=== PATIENT | female | born 1960 | race Caucasian/White ===

== ENCOUNTER 2017-11-06 12:05 | Inpatient (IN) | payer OTHER, MEDICAID, SELFPAY ==
[2017-11-06] VITALS (10 sets, daily range): BP systolic 101–126; BP diastolic 60–81; PULSE 89–111; RESP 17–22; TEMP 36.2–37.6; O2SAT 88–99; BMI 22.3; BMI 21.4
--- NOTE | 2017-11-06 12:13 | DI.RAD.S_ITS ---
PROCEDURE: XR CHEST 2V INDICATIONS: 57 year-old female with shortness of breath. TECHNIQUE: 2 views of the chest were acquired. COMPARISON: [facility], , CHEST 1 VIEW, 03/13/2017, 7:19. [facility], , CHEST 2 VIEW, 02/13/2017, 10:55. [facility], , CHEST 2 VIEW, 01/18/2017, 0:12. FINDINGS: Surgical changes and devices: Patient is status post cholecystectomy. Lungs and pleura: No pleural effusions or pneumothorax. Lungs are clear. Mediastinum: Mediastinal contours are normal. Heart size is normal. Bones and chest wall: No suspicious bony abnormalities. Soft tissues appear unremarkable. IMPRESSION: No acute cardiopulmonary disease. Dictated by: King Cornejo M.D. on 11/06/2017 at 13:25 Approved by: King Cornejo M.D. on 11/06/2017 at 13:26
[2017-11-06] MEDS: ALBUTEROL 2.5 MG/3 ML NEB INH (12:24)
[2017-11-06] MEDS: IPRATROPIUM 0.5 MG/3 ML NEB INH (12:24)
--- NOTE | 2017-11-06 12:28 | ED.SOB ---
HPI - SOB/Dyspnea <ARIADNA Rios - Last Filed: 11/06/17 22:29> General Chief Complaint: Shortness of Breath/Dyspnea Stated Complaint: 'FEEL SICK' Time Seen by Provider: 11/06/17 12:31 History of Present Illness 57-year-old female with history of COPD here for complaint of having shortness of breath and productive cough for the last 3 days. She also states she has had a fever. Worsening shortness of breath over the last day. She denies having any chest pain. Positive p.o. intake. She does complain of having a right sided abdominal pain on and off over the past couple of months. With pain present today. She denies any urinary symptoms. No nausea or vomiting. She denies having any diarrhea or constipation. MD Complaint: shortness of breath Severity: moderate Consistency/Duration: constant Relieving factors: nothing Related Data Home Medications Medication Instructions Recorded Confirmed ipratropium-albuterol 3 ml INH Q6HP PRN 11/06/17 11/06/17 Previous Rx's Medication Instructions Recorded albuterol sulfate [Ventolin HFA] 0 puff INH Q4HP PRN #1 ea 07/04/17 beclomethasone dipropionate 80 1 puff INHALATION BID #1 inh 10/15/17 mcg/actuation aerosol inhaler fluticasone 220 mcg/actuation HFA 1 puff INHALATION BID #12 gram 10/15/17 aerosol inhaler nebulizers #1 each 11/08/17 nicotine 1 patch TRANSDERMAL DAILY #21 each 11/08/17 prednisone See Label Instructions .ROUTE 11/08/17 .COMPLEX #18 tab Allergies Allergy/AdvReac Type Severity Reaction Status Date / Time Penicillins [PENICILLINS] Allergy Unknown Verified 11/06/17 12:11 Review of Systems <ARIADNA Rios - Last Filed: 11/06/17 22:29> Constitutional Reports fever(s) Eyes Denies change in vision, Denies eye discharge, Denies irritation and Denies loss of vision Cardiovascular Reports dyspnea Respiratory Reports cough and Reports dyspnea Gastrointestinal Gastrointestinal: Reports abdominal pain Genitourinary Denies hematuria, Denies flank pain, Denies urinary incontinence and Denies urinary urgency Musculoskeletal Denies back pain, Denies muscle weakness, Denies numbness and Denies tingling Integumentary/Breasts Denies pruritus, Denies erythema, Denies rash and Denies wounds Neurologic Denies confusion, Denies loss of vision, Denies numbness and Denies tingling Psychiatric Denies anxiety, Denies confusion, Denies depression, Denies homicidal ideation and Denies suicidal ideation Exam <ARIADNA Rios - Last Filed: 11/06/17 22:29> Initial Vital Signs Initial Vital Signs: Vital Signs Temperature 98.7 F 11/06/17 12:11 Pulse Rate 111 H 11/06/17 12:11 Respiratory Rate 20 11/06/17 12:11 Blood Pressure 123/81 H 11/06/17 12:11 Pulse Oximetry 95 11/06/17 12:11 Resp Effort & Inspection: cough, tachypneic and symmetric chest movement Auscultation: wheezes Cardio Rate: tachycardic Rhythm: regular rhythm Heart Sounds: S1 normal, S2 normal, no click, no gallops, no murmurs and no rubs GI Inspection: normal to inspection Palpation: soft, No hepatomegaly, No hernia, No mass, No pulsatile mass and tender (Right upper and right lower quadrant tenderness) Auscultation: normal bowel sounds General: CVA tenderness Skin General: no rashes or lesions noted, No jaundice and No petechiae Neuro General: alert, oriented x3, gait normal and no focal motor deficits Speech: speech normal Extrem General: full ROM, no clubbing, cyanosis or edema, no pedal edema and no calf tenderness <Stacy Pitts MD - Last Filed: 11/06/17 16:11> Initial Vital Signs Initial Vital Signs: Vital Signs Temperature 98.7 F 11/06/17 12:11 Pulse Rate 111 H 11/06/17 12:11 Respiratory Rate 20 11/06/17 12:11 Blood Pressure 123/81 H 11/06/17 12:11 Pulse Oximetry 95 11/06/17 12:11 <Velma Oconnell DO - Last Filed: 11/13/17 18:47> Initial Vital Signs Initial Vital Signs: Vital Signs Temperature 98.7 F 11/06/17 12:11 Pulse Rate 111 H 11/06/17 12:11 Respiratory Rate 20 11/06/17 12:11 Blood Pressure 123/81 H 11/06/17 12:11 Pulse Oximetry 95 11/06/17 12:11 Course <ARIADNA Rios - Last Filed: 11/06/17 22:29> Orders Ordered: Discontinued Medications Acetaminophen (Tylenol) 650 mg PO Q6HR PRN PRN Reason: As Needed for Fever/Mild Pain Albuterol (Ventolin) 2.5 mg INH NOW ONE Stop: 11/06/17 12:23 Last Admin: 11/06/17 12:24 Dose: 2.5 mg Albuterol/Ipratropium (Duoneb) 3 ml INH NOW ONE Stop: 11/06/17 12:33 Last Admin: 11/06/17 13:13 Dose: 3 ml Albuterol/Ipratropium (Duoneb) 3 ml INH [id number] [facility] Last Admin: 11/07/17 08:53 Dose: 3 ml Admin: 11/07/17 03:05 Dose: 3 ml Admin: 11/06/17 19:44 Dose: 3 ml Albuterol/Ipratropium (Duoneb) 3 ml INH [id number] [facility] Last Admin: 11/08/17 03:21 Dose: 3 ml Admin: 11/07/17 23:14 Dose: Not Given Admin: 11/07/17 18:06 Dose: 3 ml Admin: 11/07/17 14:56 Dose: 3 ml Admin: 11/07/17 11:39 Dose: 3 ml Beclomethasone Dipropionate (Qvar) 1 puff INH RTBID [facility] Last Admin: 11/08/17 03:28 Dose: 1 puff Admin: 11/07/17 18:06 Dose: 1 puff Admin: 11/07/17 08:47 Dose: 1 puff Admin: 11/06/17 19:44 Dose: 1 puff Enoxaparin Sodium (Lovenox) 40 mg SUBCUT DAILY [facility] Last Admin: 11/08/17 08:32 Dose: 40 mg Admin: 11/07/17 08:34 Dose: 40 mg Sodium Chloride (Normal Saline 0.9%) 1,000 mls @ 1,000 mls/hr IV BOLUS ONE Stop: 11/06/17 14:07 Last Infusion: 11/06/17 15:55 Dose: 1,000 mls/hr Admin: 11/06/17 13:42 Dose: 1,000 mls/hr Levofloxacin (Levaquin) 750 mg in 150 mls @ 100 mls/hr IV NOW ONE Stop: 11/06/17 15:41 Last Infusion: 11/06/17 15:55 Dose: 100 mls/hr Admin: 11/06/17 14:16 Dose: 100 mls/hr Levofloxacin (Levaquin) 750 mg in 150 mls @ 100 mls/hr IV Q24H [facility] Last Admin: 11/08/17 08:31 Dose: 100 mls/hr Infusion: 11/07/17 10:24 Dose: 100 mls/hr Admin: 11/07/17 08:54 Dose: 100 mls/hr Ipratropium [place] (Atrovent Neb) 0.5 mg INH NOW ONE Stop: 11/06/17 12:14 Last Admin: 11/06/17 12:24 Dose: 0.5 mg Methylprednisolone (Solu-Medrol 125 Mg Vial) 125 mg IV NOW ONE Stop: 11/06/17 15:31 Last Admin: 11/06/17 15:42 Dose: 125 mg Methylprednisolone (Solu-Medrol 125 Mg Vial) 60 mg IV DAILY [facility] Last Admin: 11/08/17 08:32 Dose: 60 mg Admin: 11/07/17 08:54 Dose: 60 mg Non-Formulary Medication (Solumedrol) 125 mg IV NOW ONE Stop: 11/06/17 15:18 Last Admin: 11/06/17 15:42 Dose: Prednisone (Deltasone) 40 mg PO DAILY [facility] Vital Signs - 8 hr 11/06/17 14:37 11/06/17 15:57 11/06/17 16:12 Temperature 99.1 F 99.6 F Pulse Rate 104 H 110 H 111 H Respiratory Rate 22 20 20 Blood Pressure 107/74 125/63 H Blood Pressure [Right Arm] 126/76 H Pulse Oximetry 96 96 92 11/06/17 20:16 11/06/17 20:40 Temperature 97.2 F L Pulse Rate 100 H 102 H Respiratory Rate 22 20 Blood Pressure 118/72 Blood Pressure [Right Arm] Pulse Oximetry 99 <Stacy Pitts MD - Last Filed: 11/06/17 16:11> Orders Ordered: Discontinued Medications Acetaminophen (Tylenol) 650 mg PO Q6HR PRN PRN Reason: As Needed for Fever/Mild Pain Albuterol (Ventolin) 2.5 mg INH NOW ONE Stop: 11/06/17 12:23 Last Admin: 11/06/17 12:24 Dose: 2.5 mg Albuterol/Ipratropium (Duoneb) 3 ml INH NOW ONE Stop: 11/06/17 12:33 Last Admin: 11/06/17 13:13 Dose: 3 ml Albuterol/Ipratropium (Duoneb) 3 ml INH [id number] [facility] Last Admin: 11/07/17 08:53 Dose: 3 ml Admin: 11/07/17 03:05 Dose: 3 ml Admin: 11/06/17 19:44 Dose: 3 ml Albuterol/Ipratropium (Duoneb) 3 ml INH [id number] [facility] Last Admin: 11/08/17 03:21 Dose: 3 ml Admin: 11/07/17 23:14 Dose: Not Given Admin: 11/07/17 18:06 Dose: 3 ml Admin: 11/07/17 14:56 Dose: 3 ml Admin: 11/07/17 11:39 Dose: 3 ml Beclomethasone Dipropionate (Qvar) 1 puff INH RTBID [facility] Last Admin: 11/08/17 03:28 Dose: 1 puff Admin: 11/07/17 18:06 Dose: 1 puff Admin: 11/07/17 08:47 Dose: 1 puff Admin: 11/06/17 19:44 Dose: 1 puff Enoxaparin Sodium (Lovenox) 40 mg SUBCUT DAILY [facility] Last Admin: 11/08/17 08:32 Dose: 40 mg Admin: 11/07/17 08:34 Dose: 40 mg Sodium Chloride (Normal Saline 0.9%) 1,000 mls @ 1,000 mls/hr IV BOLUS ONE Stop: 11/06/17 14:07 Last Infusion: 11/06/17 15:55 Dose: 1,000 mls/hr Admin: 11/06/17 13:42 Dose: 1,000 mls/hr Levofloxacin (Levaquin) 750 mg in 150 mls @ 100 mls/hr IV NOW ONE Stop: 11/06/17 15:41 Last Infusion: 11/06/17 15:55 Dose: 100 mls/hr Admin: 11/06/17 14:16 Dose: 100 mls/hr Levofloxacin (Levaquin) 750 mg in 150 mls @ 100 mls/hr IV Q24H [facility] Last Admin: 11/08/17 08:31 Dose: 100 mls/hr Infusion: 11/07/17 10:24 Dose: 100 mls/hr Admin: 11/07/17 08:54 Dose: 100 mls/hr Ipratropium [place] (Atrovent Neb) 0.5 mg INH NOW ONE Stop: 11/06/17 12:14 Last Admin: 11/06/17 12:24 Dose: 0.5 mg Methylprednisolone (Solu-Medrol 125 Mg Vial) 125 mg IV NOW ONE Stop: 11/06/17 15:31 Last Admin: 11/06/17 15:42 Dose: 125 mg Methylprednisolone (Solu-Medrol 125 Mg Vial) 60 mg IV DAILY [facility] Last Admin: 11/08/17 08:32 Dose: 60 mg Admin: 11/07/17 08:54 Dose: 60 mg Non-Formulary Medication (Solumedrol) 125 mg IV NOW ONE Stop: 11/06/17 15:18 Last Admin: 11/06/17 15:42 Dose: Prednisone (Deltasone) 40 mg PO DAILY [facility] Vital Signs - 8 hr 11/06/17 14:37 11/06/17 15:57 11/06/17 16:12 Temperature 99.1 F 99.6 F Pulse Rate 104 H 110 H 111 H Respiratory Rate 22 20 20 Blood Pressure 107/74 125/63 H Blood Pressure [Right Arm] 126/76 H Pulse Oximetry 96 96 92 11/06/17 20:16 11/06/17 20:40 Temperature 97.2 F L Pulse Rate 100 H 102 H Respiratory Rate 22 20 Blood Pressure 118/72 Blood Pressure [Right Arm] Pulse Oximetry 99 <Velma Oconnell, - Last Filed: 11/13/17 18:47> Orders Ordered: Discontinued Medications Acetaminophen (Tylenol) 650 mg PO Q6HR PRN PRN Reason: As Needed for Fever/Mild Pain Albuterol (Ventolin) 2.5 mg INH NOW ONE Stop: 11/06/17 12:23 Last Admin: 11/06/17 12:24 Dose: 2.5 mg Albuterol/Ipratropium (Duoneb) 3 ml INH NOW ONE Stop: 11/06/17 12:33 Last Admin: 11/06/17 13:13 Dose: 3 ml Albuterol/Ipratropium (Duoneb) 3 ml INH [id number] [facility] Last Admin: 11/07/17 08:53 Dose: 3 ml Admin: 11/07/17 03:05 Dose: 3 ml Admin: 11/06/17 19:44 Dose: 3 ml Albuterol/Ipratropium (Duoneb) 3 ml INH [id number] [facility] Last Admin: 11/08/17 03:21 Dose: 3 ml Admin: 11/07/17 23:14 Dose: Not Given Admin: 11/07/17 18:06 Dose: 3 ml Admin: 11/07/17 14:56 Dose: 3 ml Admin: 11/07/17 11:39 Dose: 3 ml Beclomethasone Dipropionate (Qvar) 1 puff INH RTBID [facility] Last Admin: 11/08/17 03:28 Dose: 1 puff Admin: 11/07/17 18:06 Dose: 1 puff Admin: 11/07/17 08:47 Dose: 1 puff Admin: 11/06/17 19:44 Dose: 1 puff Enoxaparin Sodium (Lovenox) 40 mg SUBCUT DAILY [facility] Last Admin: 11/08/17 08:32 Dose: 40 mg Admin: 11/07/17 08:34 Dose: 40 mg Sodium Chloride (Normal Saline 0.9%) 1,000 mls @ 1,000 mls/hr IV BOLUS ONE Stop: 11/06/17 14:07 Last Infusion: 11/06/17 15:55 Dose: 1,000 mls/hr Admin: 11/06/17 13:42 Dose: 1,000 mls/hr Levofloxacin (Levaquin) 750 mg in 150 mls @ 100 mls/hr IV NOW ONE Stop: 11/06/17 15:41 Last Infusion: 11/06/17 15:55 Dose: 100 mls/hr Admin: 11/06/17 14:16 Dose: 100 mls/hr Levofloxacin (Levaquin) 750 mg in 150 mls @ 100 mls/hr IV Q24H [facility] Last Admin: 11/08/17 08:31 Dose: 100 mls/hr Infusion: 11/07/17 10:24 Dose: 100 mls/hr Admin: 11/07/17 08:54 Dose: 100 mls/hr Ipratropium [place] (Atrovent Neb) 0.5 mg INH NOW ONE Stop: 11/06/17 12:14 Last Admin: 11/06/17 12:24 Dose: 0.5 mg Methylprednisolone (Solu-Medrol 125 Mg Vial) 125 mg IV NOW ONE Stop: 11/06/17 15:31 Last Admin: 11/06/17 15:42 Dose: 125 mg Methylprednisolone (Solu-Medrol 125 Mg Vial) 60 mg IV DAILY [facility] Last Admin: 11/08/17 08:32 Dose: 60 mg Admin: 11/07/17 08:54 Dose: 60 mg Non-Formulary Medication (Solumedrol) 125 mg IV NOW ONE Stop: 11/06/17 15:18 Last Admin: 11/06/17 15:42 Dose: Prednisone (Deltasone) 40 mg PO DAILY [facility] Vital Signs - 8 hr 11/06/17 14:37 11/06/17 15:57 11/06/17 16:12 Temperature 99.1 F 99.6 F Pulse Rate 104 H 110 H 111 H Respiratory Rate 22 20 20 Blood Pressure 107/74 125/63 H Blood Pressure [Right Arm] 126/76 H Pulse Oximetry 96 96 92 11/06/17 20:16 11/06/17 20:40 Temperature 97.2 F L Pulse Rate 100 H 102 H Respiratory Rate 22 20 Blood Pressure 118/72 Blood Pressure [Right Arm] Pulse Oximetry 99 MDM - SOB/Dyspnea <ARIADNA Rios - Last Filed: 11/06/17 22:29> Lab Data Result diagrams: 11/07/17 05:07 11/07/17 05:07 Lab Results 11/06/17 11/06/17 11/06/17 Range/Units 12:25 12:25 12:25 WBC 20.4 H (4.5-11.0) X10^3/uL RBC 4.78 (4.0-5.2) X10^6/uL Hgb 14.4 (12.0-16.0) g/dL Hct 42.5 (36-46) % MCV 88.7 (80-100) fL MCH 30.2 (26-34) PG MCHC 34.0 (30-36) % RDW 13.5 (11.6-14.8) % Plt Count 225 (150-400) X10^3/uL Neut % (Auto) 77.9 H (50-75) % Lymph % (Auto) 12.4 L (25-40) % [place] % (Auto) 8.7 (3-14) % Eos % (Auto) 0.7 L (2-4) % Baso % (Auto) 0.3 (0-2) % Neut # (Auto) 85455 H (7185-4917) /uL D-Dimer (<230) ng/mL Sodium (137-145) mmol/L Potassium (3.4-5.1) mmol/L Chloride (98-107) mmol/L Carbon Dioxide (22-32) mmol/L BUN (7-17) mg/dL Creatinine (0.52-1.04) mg/dL Estimated GFR (>60) mL/min BUN/Creatinine Ratio (6-22) Glucose (70-100) mg/dL Lactate 1.6 (0.7-2.1) mmol/L Calcium (8.4-10.2) mg/dL Total Bilirubin (0.2-1.3) mg/dL AST (14-36) IU/L ALT (9-52) IU/L Alkaline Phosphatase (38-126) U/L B-Natriuretic Peptide (<100) Total Protein (6.3-8.2) g/dL Albumin (3.5-5.0) g/dL Globulin (1.7-4.1) g/dL Albumin/Globulin Ratio (1.0-2.8) Lipase (23-300) U/L Procalcitonin 0.12 (<0.5) ng/mL Urine RBC (0-5/HPF) Urine WBC (0-5/HPF) Ur Squamous Epith Cells Urine Bacteria (None) Ur Culture Indicated? Micro UA Comment 11/06/17 11/06/17 11/06/17 Range/Units 12:54 12:54 12:54 WBC (4.5-11.0) X10^3/uL RBC (4.0-5.2) X10^6/uL Hgb (12.0-16.0) g/dL Hct (36-46) % MCV (80-100) fL MCH (26-34) PG MCHC (30-36) % RDW (11.6-14.8) % Plt Count (150-400) X10^3/uL Neut % (Auto) (50-75) % Lymph % (Auto) (25-40) % [place] % (Auto) (3-14) % Eos % (Auto) (2-4) % Baso % (Auto) (0-2) % Neut # (Auto) (9961-5161) /uL D-Dimer 497 H (<230) ng/mL Sodium 136 L (137-145) mmol/L Potassium 3.8 (3.4-5.1) mmol/L Chloride 97 L (98-107) mmol/L Carbon Dioxide 27 (22-32) mmol/L BUN 12 (7-17) mg/dL Creatinine 1.00 (0.52-1.04) mg/dL Estimated GFR 57.1 L (>60) mL/min BUN/Creatinine Ratio 12.0 (6-22) Glucose 143 H (70-100) mg/dL Lactate (0.7-2.1) mmol/L Calcium 9.2 (8.4-10.2) mg/dL Total Bilirubin 2.0 H (0.2-1.3) mg/dL AST 35 (14-36) IU/L ALT 36 (9-52) IU/L Alkaline Phosphatase 97 (38-126) U/L B-Natriuretic Peptide < 29.3 (<100) Total Protein 7.9 (6.3-8.2) g/dL Albumin 4.3 (3.5-5.0) g/dL Globulin 3.6 (1.7-4.1) g/dL Albumin/Globulin Ratio 1.2 (1.0-2.8) Lipase 36 (23-300) U/L Procalcitonin (<0.5) ng/mL Urine RBC (0-5/HPF) Urine WBC (0-5/HPF) Ur Squamous Epith Cells Urine Bacteria (None) Ur Culture Indicated? Micro UA Comment 11/06/17 11/07/17 11/07/17 Range/Units 15:06 05:07 05:07 WBC 10.4 (4.5-11.0) X10^3/uL RBC 4.36 (4.0-5.2) X10^6/uL Hgb 13.4 (12.0-16.0) g/dL Hct 38.6 (36-46) % MCV 88.6 (80-100) fL MCH 30.7 (26-34) PG MCHC 34.6 (30-36) % RDW 13.3 (11.6-14.8) % Plt Count 184 (150-400) X10^3/uL Neut % (Auto) 91.7 H (50-75) % Lymph % (Auto) 6.3 L (25-40) % [place] % (Auto) 1.9 L (3-14) % Eos % (Auto) 0.0 L (2-4) % Baso % (Auto) 0.1 (0-2) % Neut # (Auto) 9500 H (9737-9632) /uL D-Dimer (<230) ng/mL Sodium 135 L (137-145) mmol/L Potassium 3.9 (3.4-5.1) mmol/L Chloride 101 (98-107) mmol/L Carbon Dioxide 22 (22-32) mmol/L BUN 16 (7-17) mg/dL Creatinine 0.70 (0.52-1.04) mg/dL Estimated GFR > 60.0 (>60) mL/min BUN/Creatinine Ratio 22.9 H (6-22) Glucose 239 H (70-100) mg/dL Lactate (0.7-2.1) mmol/L Calcium 9.0 (8.4-10.2) mg/dL Total Bilirubin (0.2-1.3) mg/dL AST (14-36) IU/L ALT (9-52) IU/L Alkaline Phosphatase (38-126) U/L B-Natriuretic Peptide (<100) Total Protein (6.3-8.2) g/dL Albumin (3.5-5.0) g/dL Globulin (1.7-4.1) g/dL Albumin/Globulin Ratio (1.0-2.8) Lipase (23-300) U/L Procalcitonin (<0.5) ng/mL Urine RBC None seen (0-5/HPF) Urine WBC 5-10/hpf H (0-5/HPF) Ur Squamous Epith Cells 5-10 /hpf H Urine Bacteria None seen (None) Ur Culture Indicated? Cult not indicated Micro UA Comment Not Reportable Imaging Data CT scan - abdomen: Radiologist's impression: PROCEDURE: CT ABDOMEN PELVIS W CON INDICATIONS: Pain to right lower quadrant TECHNIQUE: After the administration of intravenous contrast, 5 mm thick sections acquired from the diaphragm to the symphysis. 5 mm coronal and sagittal reformats were acquired. For radiation dose reduction, the following was used: automated exposure control, adjustment of mA and/or kV according to patient size. COMPARISON: None. FINDINGS: Image quality: Excellent. ABDOMEN: Lung bases: Mild patchy densities within the right lung base are present, with associated tree in bud nodular densities. Heart size is normal. Solid organs: Liver is normal in size and enhancement. Gallbladder is surgically absent. Biliary system is non dilated. Pancreas enhances normally. Spleen is normal in size and enhancement. No adrenal nodules. Kidneys demonstrate normal size and enhancement, without hydronephrosis. Peritoneum and bowel: Bowel loops demonstrate normal wall thickness and caliber. No free fluid or air. Diverticulosis of the descending and sigmoid colon is present, with no evidence of superimposed diverticulitis. Normal appendix. Nodes and vessels: No retroperitoneal or mesenteric adenopathy by size criteria. Aorta and inferior vena cava are normal in size. Miscellaneous: No ventral hernias. PELVIS: Genitourinary: Bladder wall thickness is normal. Miscellaneous: No inguinal hernias or adenopathy. Bones: No suspicious bony lesions. No vertebral body compression fractures. IMPRESSION: 1. No evidence of acute process. Normal appendix. 2. Right lung base pneumonia. Dictated by: Stone Enrique M.D. on 11/06/2017 at 13:52 Approved by: Stone Enrique M.D. on 11/06/2017 at 13:54 Chest x-ray: Radiologist's impression: PROCEDURE: XR CHEST 2V INDICATIONS: 57 year-old female with shortness of breath. TECHNIQUE: 2 views of the chest were acquired. COMPARISON: [facility], CHEST 1 VIEW, 03/13/2017, 7:19. [facility], CHEST 2 VIEW, 02/13/2017, 10:55. [facility], CHEST 2 VIEW, 01/18/2017, 0:12. FINDINGS: Surgical changes and devices: Patient is status post cholecystectomy. Lungs and pleura: No pleural effusions or pneumothorax. Lungs are clear. Mediastinum: Mediastinal contours are normal. Heart size is normal. Bones and chest wall: No suspicious bony abnormalities. Soft tissues appear unremarkable. IMPRESSION: No acute cardiopulmonary disease. Dictated by: King Cornejo M.D. on 11/06/2017 at 13:25 Approved by: King Cornejo M.D. on 11/06/2017 at 13:26 <Stacy Pitts MD - Last Filed: 11/06/17 16:11> Lab Data Lab Results 11/06/17 11/06/17 11/06/17 Range/Units 12:25 12:25 12:25 WBC 20.4 H (4.5-11.0) X10^3/uL RBC 4.78 (4.0-5.2) X10^6/uL Hgb 14.4 (12.0-16.0) g/dL Hct 42.5 (36-46) % MCV 88.7 (80-100) fL MCH 30.2 (26-34) PG MCHC 34.0 (30-36) % RDW 13.5 (11.6-14.8) % Plt Count 225 (150-400) X10^3/uL Neut % (Auto) 77.9 H (50-75) % Lymph % (Auto) 12.4 L (25-40) % [place] % (Auto) 8.7 (3-14) % Eos % (Auto) 0.7 L (2-4) % Baso % (Auto) 0.3 (0-2) % Neut # (Auto) 48893 H (3532-3203) /uL D-Dimer (<230) ng/mL Sodium (137-145) mmol/L Potassium (3.4-5.1) mmol/L Chloride (98-107) mmol/L Carbon Dioxide (22-32) mmol/L BUN (7-17) mg/dL Creatinine (0.52-1.04) mg/dL Estimated GFR (>60) mL/min BUN/Creatinine Ratio (6-22) Glucose (70-100) mg/dL Lactate 1.6 (0.7-2.1) mmol/L Calcium (8.4-10.2) mg/dL Total Bilirubin (0.2-1.3) mg/dL AST (14-36) IU/L ALT (9-52) IU/L Alkaline Phosphatase (38-126) U/L B-Natriuretic Peptide (<100) Total Protein (6.3-8.2) g/dL Albumin (3.5-5.0) g/dL Globulin (1.7-4.1) g/dL Albumin/Globulin Ratio (1.0-2.8) Lipase (23-300) U/L Procalcitonin 0.12 (<0.5) ng/mL Urine RBC (0-5/HPF) Urine WBC (0-5/HPF) Ur Squamous Epith Cells Urine Bacteria (None) Ur Culture Indicated? Micro UA Comment 11/06/17 11/06/17 11/06/17 Range/Units 12:54 12:54 12:54 WBC (4.5-11.0) X10^3/uL RBC (4.0-5.2) X10^6/uL Hgb (12.0-16.0) g/dL Hct (36-46) % MCV (80-100) fL MCH (26-34) PG MCHC (30-36) % RDW (11.6-14.8) % Plt Count (150-400) X10^3/uL Neut % (Auto) (50-75) % Lymph % (Auto) (25-40) % [place] % (Auto) (3-14) % Eos % (Auto) (2-4) % Baso % (Auto) (0-2) % Neut # (Auto) (1848-0060) /uL D-Dimer 497 H (<230) ng/mL Sodium 136 L (137-145) mmol/L Potassium 3.8 (3.4-5.1) mmol/L Chloride 97 L (98-107) mmol/L Carbon Dioxide 27 (22-32) mmol/L BUN 12 (7-17) mg/dL Creatinine 1.00 (0.52-1.04) mg/dL Estimated GFR 57.1 L (>60) mL/min BUN/Creatinine Ratio 12.0 (6-22) Glucose 143 H (70-100) mg/dL Lactate (0.7-2.1) mmol/L Calcium 9.2 (8.4-10.2) mg/dL Total Bilirubin 2.0 H (0.2-1.3) mg/dL AST 35 (14-36) IU/L ALT 36 (9-52) IU/L Alkaline Phosphatase 97 (38-126) U/L B-Natriuretic Peptide < 29.3 (<100) Total Protein 7.9 (6.3-8.2) g/dL Albumin 4.3 (3.5-5.0) g/dL Globulin 3.6 (1.7-4.1) g/dL Albumin/Globulin Ratio 1.2 (1.0-2.8) Lipase 36 (23-300) U/L Procalcitonin (<0.5) ng/mL Urine RBC (0-5/HPF) Urine WBC (0-5/HPF) Ur Squamous Epith Cells Urine Bacteria (None) Ur Culture Indicated? Micro UA Comment 11/06/17 11/07/17 11/07/17 Range/Units 15:06 05:07 05:07 WBC 10.4 (4.5-11.0) X10^3/uL RBC 4.36 (4.0-5.2) X10^6/uL Hgb 13.4 (12.0-16.0) g/dL Hct 38.6 (36-46) % MCV 88.6 (80-100) fL MCH 30.7 (26-34) PG MCHC 34.6 (30-36) % RDW 13.3 (11.6-14.8) % Plt Count 184 (150-400) X10^3/uL Neut % (Auto) 91.7 H (50-75) % Lymph % (Auto) 6.3 L (25-40) % [place] % (Auto) 1.9 L (3-14) % Eos % (Auto) 0.0 L (2-4) % Baso % (Auto) 0.1 (0-2) % Neut # (Auto) 9500 H (7169-9377) /uL D-Dimer (<230) ng/mL Sodium 135 L (137-145) mmol/L Potassium 3.9 (3.4-5.1) mmol/L Chloride 101 (98-107) mmol/L Carbon Dioxide 22 (22-32) mmol/L BUN 16 (7-17) mg/dL Creatinine 0.70 (0.52-1.04) mg/dL Estimated GFR > 60.0 (>60) mL/min BUN/Creatinine Ratio 22.9 H (6-22) Glucose 239 H (70-100) mg/dL Lactate (0.7-2.1) mmol/L Calcium 9.0 (8.4-10.2) mg/dL Total Bilirubin (0.2-1.3) mg/dL AST (14-36) IU/L ALT (9-52) IU/L Alkaline Phosphatase (38-126) U/L B-Natriuretic Peptide (<100) Total Protein (6.3-8.2) g/dL Albumin (3.5-5.0) g/dL Globulin (1.7-4.1) g/dL Albumin/Globulin Ratio (1.0-2.8) Lipase (23-300) U/L Procalcitonin (<0.5) ng/mL Urine RBC None seen (0-5/HPF) Urine WBC 5-10/hpf H (0-5/HPF) Ur Squamous Epith Cells 5-10 /hpf H Urine Bacteria None seen (None) Ur Culture Indicated? Cult not indicated Micro UA Comment Not Reportable <Velma Oconnell, DO - Last Filed: 11/13/17 18:47> Lab Data Lab Results 11/06/17 11/06/17 11/06/17 Range/Units 12:25 12:25 12:25 WBC 20.4 H (4.5-11.0) X10^3/uL RBC 4.78 (4.0-5.2) X10^6/uL Hgb 14.4 (12.0-16.0) g/dL Hct 42.5 (36-46) % MCV 88.7 (80-100) fL MCH 30.2 (26-34) PG MCHC 34.0 (30-36) % RDW 13.5 (11.6-14.8) % Plt Count 225 (150-400) X10^3/uL Neut % (Auto) 77.9 H (50-75) % Lymph % (Auto) 12.4 L (25-40) % [place] % (Auto) 8.7 (3-14) % Eos % (Auto) 0.7 L (2-4) % Baso % (Auto) 0.3 (0-2) % Neut # (Auto) 66219 H (6529-7325) /uL D-Dimer (<230) ng/mL Sodium (137-145) mmol/L Potassium (3.4-5.1) mmol/L Chloride (98-107) mmol/L Carbon Dioxide (22-32) mmol/L BUN (7-17) mg/dL Creatinine (0.52-1.04) mg/dL Estimated GFR (>60) mL/min BUN/Creatinine Ratio (6-22) Glucose (70-100) mg/dL Lactate 1.6 (0.7-2.1) mmol/L Calcium (8.4-10.2) mg/dL Total Bilirubin (0.2-1.3) mg/dL AST (14-36) IU/L ALT (9-52) IU/L Alkaline Phosphatase (38-126) U/L B-Natriuretic Peptide (<100) Total Protein (6.3-8.2) g/dL Albumin (3.5-5.0) g/dL Globulin (1.7-4.1) g/dL Albumin/Globulin Ratio (1.0-2.8) Lipase (23-300) U/L Procalcitonin 0.12 (<0.5) ng/mL Urine RBC (0-5/HPF) Urine WBC (0-5/HPF) Ur Squamous Epith Cells Urine Bacteria (None) Ur Culture Indicated? Micro UA Comment 11/06/17 11/06/17 11/06/17 Range/Units 12:54 12:54 12:54 WBC (4.5-11.0) X10^3/uL RBC (4.0-5.2) X10^6/uL Hgb (12.0-16.0) g/dL Hct (36-46) % MCV (80-100) fL MCH (26-34) PG MCHC (30-36) % RDW (11.6-14.8) % Plt Count (150-400) X10^3/uL Neut % (Auto) (50-75) % Lymph % (Auto) (25-40) % [place] % (Auto) (3-14) % Eos % (Auto) (2-4) % Baso % (Auto) (0-2) % Neut # (Auto) (1655-7435) /uL D-Dimer 497 H (<230) ng/mL Sodium 136 L (137-145) mmol/L Potassium 3.8 (3.4-5.1) mmol/L Chloride 97 L (98-107) mmol/L Carbon Dioxide 27 (22-32) mmol/L BUN 12 (7-17) mg/dL Creatinine 1.00 (0.52-1.04) mg/dL Estimated GFR 57.1 L (>60) mL/min BUN/Creatinine Ratio 12.0 (6-22) Glucose 143 H (70-100) mg/dL Lactate (0.7-2.1) mmol/L Calcium 9.2 (8.4-10.2) mg/dL Total Bilirubin 2.0 H (0.2-1.3) mg/dL AST 35 (14-36) IU/L ALT 36 (9-52) IU/L Alkaline Phosphatase 97 (38-126) U/L B-Natriuretic Peptide < 29.3 (<100) Total Protein 7.9 (6.3-8.2) g/dL Albumin 4.3 (3.5-5.0) g/dL Globulin 3.6 (1.7-4.1) g/dL Albumin/Globulin Ratio 1.2 (1.0-2.8) Lipase 36 (23-300) U/L Procalcitonin (<0.5) ng/mL Urine RBC (0-5/HPF) Urine WBC (0-5/HPF) Ur Squamous Epith Cells Urine Bacteria (None) Ur Culture Indicated? Micro UA Comment 11/06/17 11/07/17 11/07/17 Range/Units 15:06 05:07 05:07 WBC 10.4 (4.5-11.0) X10^3/uL RBC 4.36 (4.0-5.2) X10^6/uL Hgb 13.4 (12.0-16.0) g/dL Hct 38.6 (36-46) % MCV 88.6 (80-100) fL MCH 30.7 (26-34) PG MCHC 34.6 (30-36) % RDW 13.3 (11.6-14.8) % Plt Count 184 (150-400) X10^3/uL Neut % (Auto) 91.7 H (50-75) % Lymph % (Auto) 6.3 L (25-40) % [place] % (Auto) 1.9 L (3-14) % Eos % (Auto) 0.0 L (2-4) % Baso % (Auto) 0.1 (0-2) % Neut # (Auto) 9500 H (2576-0825) /uL D-Dimer (<230) ng/mL Sodium 135 L (137-145) mmol/L Potassium 3.9 (3.4-5.1) mmol/L Chloride 101 (98-107) mmol/L Carbon Dioxide 22 (22-32) mmol/L BUN 16 (7-17) mg/dL Creatinine 0.70 (0.52-1.04) mg/dL Estimated GFR > 60.0 (>60) mL/min BUN/Creatinine Ratio 22.9 H (6-22) Glucose 239 H (70-100) mg/dL Lactate (0.7-2.1) mmol/L Calcium 9.0 (8.4-10.2) mg/dL Total Bilirubin (0.2-1.3) mg/dL AST (14-36) IU/L ALT (9-52) IU/L Alkaline Phosphatase (38-126) U/L B-Natriuretic Peptide (<100) Total Protein (6.3-8.2) g/dL Albumin (3.5-5.0) g/dL Globulin (1.7-4.1) g/dL Albumin/Globulin Ratio (1.0-2.8) Lipase (23-300) U/L Procalcitonin (<0.5) ng/mL Urine RBC None seen (0-5/HPF) Urine WBC 5-10/hpf H (0-5/HPF) Ur Squamous Epith Cells 5-10 /hpf H Urine Bacteria None seen (None) Ur Culture Indicated? Cult not indicated Micro UA Comment Not Reportable Discharge Plan Departure Patient Disposition: Admitted As Inpatient Clinical Impression: Community acquired pneumonia Discharge Date/Time: 11/06/17 15:58 Interventions: ED Discharge Assessment Last Done: 11/06/17 15:57 Admit Date/Time: 11/06/17 15:46 Admit Provider: Stacy Pitts <Velma Oconnell DO - Last Filed: 11/13/17 18:47> Cosign ED Attending Cosignature Attestation: I was immediately available in the department for consultation. Documentation has been reviewed. I agree with assessment and plan.
[2017-11-06 12:37] LABS: Add Manual Diff / Slide Review NO; Basophils Percent Auto 0.3 % (0-2); Eosinophils Percent Auto 0.7 % (2-4); Hematocrit 42.5 % (36-46); Hemoglobin 14.4 g/dL (12.0-16.0); Lymphocytes Percent Auto 12.4 % (25-40); Mean Corpuscular Hemoglobin 30.2 PG (26-34); Mean Corpuscular Volume 88.7 fL (80-100); Monocytes Percent Auto 8.7 % (3-14); Neutrophils Absolute Auto 15900 /uL (3000-5900); Neutrophils Percent Auto 77.9 % (50-75); Platelet Count 225 X10^3/uL (150-400); Red Blood Cell Count 4.78 X10^6/uL (4.0-5.2); Red Cell Distribution Width 13.5 % (11.6-14.8); White Blood Cell Count 20.4 X10^3/uL (4.5-11.0)
[2017-11-06 12:51] LABS: Lactate (Lactic Acid) 1.6 mmol/L (0.7-2.1)
--- NOTE | 2017-11-06 13:10 | DI.CT.S_ITS ---
PROCEDURE: CT ABDOMEN PELVIS W CON INDICATIONS: Pain to right lower quadrant TECHNIQUE: After the administration of intravenous contrast, 5 mm thick sections acquired from the diaphragm to the symphysis. 5 mm coronal and sagittal reformats were acquired. For radiation dose reduction, the following was used: automated exposure control, adjustment of mA and/or kV according to patient size. COMPARISON: None. FINDINGS: Image quality: Excellent. ABDOMEN: Lung bases: Mild patchy densities within the right lung base are present, with associated tree in bud nodular densities. Heart size is normal. Solid organs: Liver is normal in size and enhancement. Gallbladder is surgically absent. Biliary system is non dilated. Pancreas enhances normally. Spleen is normal in size and enhancement. No adrenal nodules. Kidneys demonstrate normal size and enhancement, without hydronephrosis. Peritoneum and bowel: Bowel loops demonstrate normal wall thickness and caliber. No free fluid or air. Diverticulosis of the descending and sigmoid colon is present, with no evidence of superimposed diverticulitis. Normal appendix. Nodes and vessels: No retroperitoneal or mesenteric adenopathy by size criteria. Aorta and inferior vena cava are normal in size. Miscellaneous: No ventral hernias. PELVIS: Genitourinary: Bladder wall thickness is normal. Miscellaneous: No inguinal hernias or adenopathy. Bones: No suspicious bony lesions. No vertebral body compression fractures. IMPRESSION: 1. No evidence of acute process. Normal appendix. 2. Right lung base pneumonia. Dictated by: Stone Enrique M.D. on 11/06/2017 at 13:52 Approved by: Stone Enrique M.D. on 11/06/2017 at 13:54
[2017-11-06] MEDS: ALBUTEROL/IPRATROPIUM 3 ML AMPUL INH ×2 (13:13→19:44)
[2017-11-06 13:16] LABS: Alanine Aminotransferase 36 IU/L (9-52); Albumin 4.3 g/dL (3.5-5.0); Albumin Globulin Ratio 1.2 (1.0-2.8); Alkaline Phosphatase 97 U/L (38-126); Aspartate Aminotransferase 35 IU/L (14-36); Blood Urea Nitrogen 12 mg/dL (7-17); Calcium 9.2 mg/dL (8.4-10.2); Carbon Dioxide 27 mmol/L (22-32); Chloride 97 mmol/L (98-107); Estimated Glomerular Filt Rate 57.1 mL/min (>60); Globulin 3.6 g/dL (1.7-4.1); Glucose 143 mg/dL (70-100); HEMOLYSIS < 15 (0-50); Lipase 36 U/L (23-300); Potassium 3.8 mmol/L (3.4-5.1); Sodium 136 mmol/L (137-145); Total Protein 7.9 g/dL (6.3-8.2)
[2017-11-06 13:23] LABS: Procalcitonin 0.12 ng/mL (<0.5)
[2017-11-06] MEDS: SODIUM CHLORIDE 0.9% 1,000 ML 1000 ML IV (13:42)
--- NOTE | 2017-11-06 13:46 | DI.US.S_ITS ---
PROCEDURE: US PERIPH VENOUS LOW EXTREM BI INDICATIONS: SOB TECHNIQUE: Real-time imaging, as well as color and pulse Doppler interrogation, were performed of the deep veins of both legs from the inguinal ligament to the popliteal fossa. COMPARISON: None. FINDINGS: The deep veins are normally compressible, and free of intraluminal thrombus. Color and pulse Doppler demonstrate normal phasic intravascular flow. There is normal augmentation response to distal compression maneuver. Moncada's cyst is noted measuring 37 x 8 x 10 mm. IMPRESSION: No visualized deep venous thrombosis. Moncada's cyst is noted. Dictated by: Graciela Matias M.D. on 11/06/2017 at 13:29 Approved by: Graciela Matias M.D. on 11/06/2017 at 13:30
[2017-11-06] MEDS: levoFLOXacin 750 MG/150 ML PIGGYBACK 100 MG IV (14:16)
[2017-11-06 14:32] LABS: B Type Natriuretic Peptide < 29.3 (<100)
[2017-11-06 14:33] LABS: D Dimer 497 ng/mL (<230)
--- NOTE | 2017-11-06 15:11 | PM.HP.1 ---
History of Present Illness Chief complaint: COPD Narrative: Tamara Devine is a 57 year old woman with COPD and tobacco abuse who presented with shortness of breath, cough, and fever. The patient reports that for the past week she has been feeling increasingly short of breath. She has been using her albuterol rescue inhaler frequently. Three days ago, she started to developed subjective fevers. She states these have gotten ???very high.??? She does endorse also having chills. Her cough also acutely worsened. Is now productive of dark yellow sputum. She denies significant nasal congestion, sore throat, ear pain. Prior to 1 week ago, she had been feeling at her baseline with the patient is currently in the process of moving, and has been working on packing her house. The patient denies any recent chest pain. She does endorse having bilateral leg cramping, worse this morning. She denies this being any worse with ambulation. Patient states that her COPD has been well controlled with just the QVAR generally. Patient History Medical History Cholecystectomy planned (Acute) Anxiety (Chronic) COPD (chronic obstructive pulmonary disease) (Chronic) Chronic back pain (Chronic) Family & Social History Family History: Reviewed 11/06/17 by Stacy Pitts MD Tobacco & Substance use: Smoking Status Current every day smoker Smokes 4 cigarettes/day on average Limited alcohol consumption No recreational drug use Meds Home Medications Medication Instructions Recorded Confirmed Type albuterol sulfate [Ventolin HFA] 0 puff INH Q4HP PRN #1 ea 07/04/17 11/06/17 Rx beclomethasone dipropionate 80 1 puff INHALATION BID #1 inh 10/15/17 11/06/17 Rx mcg/actuation aerosol inhaler fluticasone 220 mcg/actuation HFA 1 puff INHALATION BID #12 gram 10/15/17 11/06/17 Rx aerosol inhaler ipratropium-albuterol 3 ml INH Q6HP PRN 11/06/17 11/06/17 History Allergies Allergy/AdvReac Type Severity Reaction Status Date / Time Penicillins [PENICILLINS] Allergy Unknown Verified 11/06/17 12:11 Review of Systems Constitutional Constitutional: Reports body ache(s), Reports chills, Reports fatigue, Reports fever(s) and Denies headache(s) ENT Ears, Nose, Mouth, and Throat: No ear pain, No headache(s), No nasal congestion, No post nasal drip, No sinus pain and No sore throat Cardiovascular Cardiovascular: Denies chest pain, Denies irregular heart rhythm, Denies lightheadedness and Reports shortness of breath Respiratory Respiratory: Reports chest congestion, Reports cough, Reports dyspnea, Denies stridor and Reports wheezing Gastrointestinal Gastrointestinal: Reports abdominal pain (right upper quadrant, mild), Denies change in bowel habits, Denies constipation, Denies loose stools, Denies nausea and Denies vomiting Genitourinary Genitourinary: Denies urinary frequency and Denies flank pain Musculoskeletal Musculoskeletal: Reports myalgias Neurologic Neurologic: Denies headache(s) Endocrine Endocrine: Reports fatigue Allergic/Immunologic Allergic/Immunologic: Reports wheezing Exam Vital Signs (past 8 hours): Vital Signs - 8 hr 11/06/17 12:11 11/06/17 12:25 11/06/17 13:45 Temperature 98.7 F Pulse Rate 111 H 104 H Respiratory Rate 20 Blood Pressure 123/81 H Blood Pressure [Right Arm] 117/71 Pulse Oximetry 95 96 94 11/06/17 14:37 Temperature 99.1 F Pulse Rate 104 H Respiratory Rate 22 Blood Pressure Blood Pressure [Right Arm] 126/76 H Pulse Oximetry 96 Pulse Oximetry 96 Oxygen Delivery Method Room Air Oxygen Flow Rate 0 Narrative Exam Narrative: GEN - alert, cooperative and no distress HEENT - normocephalic and atraumatic, sclera white, moist mucus membranes, throat non-erythematous and tonsils not enlarged NECK - FROM, no adenopathy HEART - RRR, S1, S2 normal, no S3 or S4, no murmurs LUNGS - symmetric chest rise, no accessory muscles, diffuse inspiratory and expiratory wheezing with decreased air movement throughout, crackles present bilateral bases ABD - flat, nondistended, normal bowel sounds, soft, mild tenderness RUQ without rebound/guarding/rigidity, no hepatomegaly, splenomegaly or masses EXT - no cyanosis, clubbing or edema; no calf tenderness; negative myah's sign bilaterally SKIN - no rashes or suspicious lesions NEURO - no gross deficits Objective Imaging Chest x-ray: My impression: No acute issues Radiologist's impression: No acute cardiopulmonary disease CT scan - abdomen: Radiologist's impression: No evidence of acute process. Normal appendix. Right lung base pneumonia. Venous US: Radiologist's impression: No visualized DVT. Moncada's cyst noted. Labs Result Diagrams: 11/06/17 12:25 11/06/17 12:54 Labs: Laboratory Results - last 24 hr 11/06/17 11/06/17 11/06/17 12:25 12:25 12:25 WBC 20.4 H RBC 4.78 Hgb 14.4 Hct 42.5 MCV 88.7 MCH 30.2 MCHC 34.0 RDW 13.5 Plt Count 225 Neut % (Auto) 77.9 H Lymph % (Auto) 12.4 L [place] % (Auto) 8.7 Eos % (Auto) 0.7 L Baso % (Auto) 0.3 Neut # (Auto) 81858 H D-Dimer Sodium Potassium Chloride Carbon Dioxide BUN Creatinine Estimated GFR BUN/Creatinine Ratio Glucose Lactate 1.6 Calcium Total Bilirubin AST ALT Alkaline Phosphatase B-Natriuretic Peptide Total Protein Albumin Globulin Albumin/Globulin Ratio Lipase Procalcitonin 0.12 11/06/17 11/06/17 11/06/17 12:54 12:54 12:54 WBC RBC Hgb Hct MCV MCH MCHC RDW Plt Count Neut % (Auto) Lymph % (Auto) [place] % (Auto) Eos % (Auto) Baso % (Auto) Neut # (Auto) D-Dimer 497 H Sodium 136 L Potassium 3.8 Chloride 97 L Carbon Dioxide 27 BUN 12 Creatinine 1.00 Estimated GFR 57.1 L BUN/Creatinine Ratio 12.0 Glucose 143 H Lactate Calcium 9.2 Total Bilirubin 2.0 H AST 35 ALT 36 Alkaline Phosphatase 97 B-Natriuretic Peptide < 29.3 Total Protein 7.9 Albumin 4.3 Globulin 3.6 Albumin/Globulin Ratio 1.2 Lipase 36 Procalcitonin Assessment & Plan (1) COPD with exacerbation: Current visit: Yes Status: Acute (2) Community acquired pneumonia: Qualifiers: Laterality: right Lung location: lower lobe of lung Qualified Code(s): J18.1 - Lobar pneumonia, unspecified organism Current visit: Yes Status: Acute 57yo woman with COPD and tobacco abuse who presented with SOB, cough, and fever. In the ER, noted to be tachycardic and tachypneic with signfiicantly elevated WBC count. CXR was unrevealing, however abdominal CT completed due to mild abdominal pain showed right lower lobe pneumonia. Pt also with evidence of significant COPD exacerbation. D-dimer slightly elevated, negative LE dopplers. 1) COPD exacerbation: O2 saturation in normal range, however significantly compromised air movement on exam with wheezing. - Solumedrol 60mg IV daily - Duonebs PRN - Continue home QVAR - RT consulted for breathing treatments 2) Right lower lobe pneumonia, community acquired: - Continue Levofloxacin 3) Tobacco abuse: - Ongoing cessation counseling DVT prophylaxis: Lovenox FEN: General diet Dispo: Pt with normal O2 saturation, possible d/c tomorrow dependent on symptomatic improvement. More likely d/c in 2 midnights. (3) Tobacco abuse: Current visit: Yes Status: Chronic
--- NOTE | 2017-11-06 15:15 | P.HP_ITS ---
History of Present Illness Chief complaint: COPD Narrative: Tamara Devine is a 57 year old woman with COPD and tobacco abuse who presented with shortness of breath, cough, and fever. The patient reports that for the past week she has been feeling increasingly short of breath. She has been using her albuterol rescue inhaler frequently. Three days ago, she started to developed subjective fevers. She states these have gotten ?very high.? She does endorse also having chills. Her cough also acutely worsened. Is now productive of dark yellow sputum. She denies significant nasal congestion, sore throat, ear pain. Prior to 1 week ago, she had been feeling at her baseline with the patient is currently in the process of moving, and has been working on packing her house. The patient denies any recent chest pain. She does endorse having bilateral leg cramping, worse this morning. She denies this being any worse with ambulation. Patient states that her COPD has been well controlled with just the QVAR generally. Patient History Medical History Cholecystectomy planned (Acute) Anxiety (Chronic) COPD (chronic obstructive pulmonary disease) (Chronic) Chronic back pain (Chronic) Family & Social History Family History: Reviewed 11/06/17 by Stacy Pitts MD Tobacco & Substance use: Smoking Status Current every day smoker Smokes 4 cigarettes/day on average Limited alcohol consumption No recreational drug use Meds Home Medications Medication Instructions Recorded Confirmed Type albuterol sulfate [Ventolin HFA] 0 puff INH Q4HP PRN #1 ea 07/04/17 11/06/17 Rx beclomethasone dipropionate 80 1 puff INHALATION BID #1 inh 10/15/17 11/06/17 Rx mcg/actuation aerosol inhaler fluticasone 220 mcg/actuation HFA 1 puff INHALATION BID #12 gram 10/15/17 Rx aerosol inhaler ipratropium-albuterol 3 ml INH Q6HP PRN 11/06/17 11/06/17 History Allergies Allergy/AdvReac Type Severity Reaction Status Date / Time Penicillins [PENICILLINS] Allergy Unknown Verified 11/06/17 12:11 Review of Systems Constitutional Constitutional: Reports body ache(s), Reports chills, Reports fatigue, Reports fever(s) and Denies headache(s) ENT Ears, Nose, Mouth, and Throat: No ear pain, No headache(s), No nasal congestion , No post nasal drip, No sinus pain and No sore throat Cardiovascular Cardiovascular: Denies chest pain, Denies irregular heart rhythm, Denies lightheadedness and Reports shortness of breath Respiratory Respiratory: Reports chest congestion, Reports cough, Reports dyspnea, Denies stridor and Reports wheezing Gastrointestinal Gastrointestinal: Reports abdominal pain (right upper quadrant, mild), Denies change in bowel habits, Denies constipation, Denies loose stools, Denies nausea and Denies vomiting Genitourinary Genitourinary: Denies urinary frequency and Denies flank pain Musculoskeletal Musculoskeletal: Reports myalgias Neurologic Neurologic: Denies headache(s) Endocrine Endocrine: Reports fatigue Allergic/Immunologic Allergic/Immunologic: Reports wheezing Exam Vital Signs (past 8 hours): Vital Signs - 8 hr 3 11/06/17 12:11 11/06/17 12:25 11/06/17 13:45 Temperature 98.7 F Pulse Rate 111 H 104 H Respiratory Rate 20 Blood Pressure 123/81 H Blood Pressure [Right Arm] 117/71 Pulse Oximetry 95 96 94 3 11/06/17 14:37 Temperature 99.1 F Pulse Rate 104 H Respiratory Rate 22 Blood Pressure Blood Pressure [Right Arm] 126/76 H Pulse Oximetry 96 Pulse Oximetry 96 Oxygen Delivery Method Room Air Oxygen Flow Rate 0 Narrative Exam Narrative: GEN - alert, cooperative and no distress HEENT - normocephalic and atraumatic, sclera white, moist mucus membranes, throat non-erythematous and tonsils not enlarged NECK - FROM, no adenopathy HEART - RRR, S1, S2 normal, no S3 or S4, no murmurs LUNGS - symmetric chest rise, no accessory muscles, diffuse inspiratory and expiratory wheezing with decreased air movement throughout, crackles present bilateral bases ABD - flat, nondistended, normal bowel sounds, soft, mild tenderness RUQ without rebound/guarding/rigidity, no hepatomegaly, splenomegaly or masses EXT - no cyanosis, clubbing or edema; no calf tenderness; negative myah's sign bilaterally SKIN - no rashes or suspicious lesions NEURO - no gross deficits Objective Imaging Chest x-ray: My impression: No acute issues Radiologist's impression: No acute cardiopulmonary disease CT scan - abdomen: Radiologist's impression: No evidence of acute process. Normal appendix. Right lung base pneumonia. Venous US: Radiologist's impression: No visualized DVT. Moncada's cyst noted. Labs Result Diagrams: 11/06/17 12:25 11/06/17 12:54 Labs: Laboratory Results - last 24 hr 11/06/17 11/06/17 11/06/17 12:25 12:25 12:25 WBC 20.4 H RBC 4.78 Hgb 14.4 Hct 42.5 MCV 88.7 MCH 30.2 MCHC 34.0 RDW 13.5 Plt Count 225 Neut % (Auto) 77.9 H Lymph % (Auto) 12.4 L [place] % (Auto) 8.7 Eos % (Auto) 0.7 L Baso % (Auto) 0.3 Neut # (Auto) 50754 H D-Dimer Sodium Potassium Chloride Carbon Dioxide BUN Creatinine Estimated GFR BUN/Creatinine Ratio Glucose Lactate 1.6 Calcium Total Bilirubin AST ALT Alkaline Phosphatase B-Natriuretic Peptide Total Protein Albumin Globulin Albumin/Globulin Ratio Lipase Procalcitonin 0.12 11/06/17 11/06/17 11/06/17 12:54 12:54 12:54 WBC RBC Hgb Hct MCV MCH MCHC RDW Plt Count Neut % (Auto) Lymph % (Auto) [place] % (Auto) Eos % (Auto) Baso % (Auto) Neut # (Auto) D-Dimer 497 H Sodium 136 L Potassium 3.8 Chloride 97 L Carbon Dioxide 27 BUN 12 Creatinine 1.00 Estimated GFR 57.1 L BUN/Creatinine Ratio 12.0 Glucose 143 H Lactate Calcium 9.2 Total Bilirubin 2.0 H AST 35 ALT 36 Alkaline Phosphatase 97 B-Natriuretic Peptide < 29.3 Total Protein 7.9 Albumin 4.3 Globulin 3.6 Albumin/Globulin Ratio 1.2 Lipase 36 Procalcitonin Assessment & Plan (1) COPD with exacerbation: Current visit: Yes Status: Acute (2) Community acquired pneumonia: Qualifiers: Laterality: right Lung location: lower lobe of lung Qualified Code(s) : J18.1 - Lobar pneumonia, unspecified organism Current visit: Yes Status: Acute 57yo woman with COPD and tobacco abuse who presented with SOB, cough, and fever. In the ER, noted to be tachycardic and tachypneic with signfiicantly elevated WBC count. CXR was unrevealing, however abdominal CT completed due to mild abdominal pain showed right lower lobe pneumonia. Pt also with evidence of significant COPD exacerbation. D-dimer slightly elevated, negative LE dopplers. 1) COPD exacerbation: O2 saturation in normal range, however significantly compromised air movement on exam with wheezing. - Solumedrol 60mg IV daily - Duonebs PRN - Continue home QVAR - RT consulted for breathing treatments 2) Right lower lobe pneumonia, community acquired: - Continue Levofloxacin 3) Tobacco abuse: - Ongoing cessation counseling DVT prophylaxis: Lovenox FEN: General diet Dispo: Pt with normal O2 saturation, possible d/c tomorrow dependent on symptomatic improvement. More likely d/c in 2 midnights. (3) Tobacco abuse: Current visit: Yes Status: Chronic
[2017-11-06] MEDS: methylPREDNISolone 125 MG/2 ML VIAL IV (15:42)
[2017-11-06 18:40] LABS: Bacteria Urine None Seen; RBC Urine None Seen (0-5/HPF)
[2017-11-06 19:08] LABS: Squamous Epithelial Cell Urine 5-10 /HPF; WBC Urine 5-10/HPF (0-5/HPF)
[2017-11-06 19:09] LABS: Culture Indicated Urine Cult Not Indicated
[2017-11-06] MEDS: BECLOMETHASONE 80 MCG 1 PUFF INH (19:44)
[2017-11-07] VITALS (14 sets, daily range): BP systolic 98–119; BP diastolic 53–66; PULSE 75–111; RESP 16–20; TEMP 36.1–37; O2SAT 88–98
--- NOTE | 2017-11-07 03:03 | RT ---
Pt. request order for home nebulizer. Her's was borrowed and she feels it is no longer working well. Need order from physician for DME
[2017-11-07] MEDS: ALBUTEROL/IPRATROPIUM 3 ML AMPUL INH ×5 (03:05→18:06)
[2017-11-07 05:53] LABS: Add Manual Diff / Slide Review NO; Basophils Percent Auto 0.1 % (0-2); Hematocrit 38.6 % (36-46); Hemoglobin 13.4 g/dL (12.0-16.0); Lymphocytes Percent Auto 6.3 % (25-40); Mean Corpuscular HGB Conc 34.6 % (30-36); Mean Corpuscular Hemoglobin 30.7 PG (26-34); Mean Corpuscular Volume 88.6 fL (80-100); Monocytes Percent Auto 1.9 % (3-14); Neutrophils Absolute Auto 9500 /uL (3000-5900); Neutrophils Percent Auto 91.7 % (50-75); Platelet Count 184 X10^3/uL (150-400); Red Blood Cell Count 4.36 X10^6/uL (4.0-5.2); Red Cell Distribution Width 13.3 % (11.6-14.8); White Blood Cell Count 10.4 X10^3/uL (4.5-11.0)
[2017-11-07 06:00] LABS: BUN Creatinine Ratio 22.9 (6-22); Blood Urea Nitrogen 16 mg/dL (7-17); Carbon Dioxide 22 mmol/L (22-32); Chloride 101 mmol/L (98-107); Estimated Glomerular Filt Rate > 60.0 mL/min (>60); Glucose 239 mg/dL (70-100); HEMOLYSIS < 15 (0-50); Potassium 3.9 mmol/L (3.4-5.1); Sodium 135 mmol/L (137-145)
--- NOTE | 2017-11-07 08:25 | P.PN_ITS ---
Subjective Date Patient Seen: 11/07/17 Time Patient Seen: 08:00 Interval history: Pt reports that she is feeling minimally improved. Her O2 sat did drop last night, and she is now on 2L O2 via NC. She felt very cold during the evening, but denies feeling any fevers. She states that her breathing feels about the same as previously. Exam Vital Signs (past 8 hours): Vital Signs - 8 hr 3 11/07/17 03:15 11/07/17 03:16 11/07/17 05:00 Temperature 97.0 F L Pulse Rate 99 H Respiratory Rate 20 Blood Pressure 105/66 Pulse Oximetry 94 94 96 3 11/07/17 05:25 11/07/17 06:00 11/07/17 07:35 Temperature 97.7 F Pulse Rate 75 Respiratory Rate 16 Blood Pressure 98/62 Pulse Oximetry 88 L 96 96 Pulse Oximetry 96 Oxygen Delivery Method Nasal Cannula Oxygen Flow Rate 2 Narrative Exam Narrative: Gen: NAD, laying comfortably in bed, NC in place, speaking easily in complete sentences CV: RRR, no murmurs Resp: decreased air movement throughout, inspiratory and expiratory wheezing in all chua improved slightly from yesterday, slight crackles bilateral bases Ext: no edema Objective Labs Result Diagrams: 11/07/17 05:07 11/07/17 05:07 Labs: Laboratory Results - last 24 hr 11/06/17 11/06/17 11/06/17 12:25 12:25 12:25 WBC 20.4 H RBC 4.78 Hgb 14.4 Hct 42.5 MCV 88.7 MCH 30.2 MCHC 34.0 RDW 13.5 Plt Count 225 Neut % (Auto) 77.9 H Lymph % (Auto) 12.4 L [place] % (Auto) 8.7 Eos % (Auto) 0.7 L Baso % (Auto) 0.3 Neut # (Auto) 04632 H D-Dimer Sodium Potassium Chloride Carbon Dioxide BUN Creatinine Estimated GFR BUN/Creatinine Ratio Glucose Lactate 1.6 Calcium Total Bilirubin AST ALT Alkaline Phosphatase B-Natriuretic Peptide Total Protein Albumin Globulin Albumin/Globulin Ratio Lipase Procalcitonin 0.12 Urine RBC Urine WBC Ur Squamous Epith Cells Urine Bacteria Ur Culture Indicated? Micro UA Comment 11/06/17 11/06/17 11/06/17 12:54 12:54 12:54 WBC RBC Hgb Hct MCV MCH MCHC RDW Plt Count Neut % (Auto) Lymph % (Auto) [place] % (Auto) Eos % (Auto) Baso % (Auto) Neut # (Auto) D-Dimer 497 H Sodium 136 L Potassium 3.8 Chloride 97 L Carbon Dioxide 27 BUN 12 Creatinine 1.00 Estimated GFR 57.1 L BUN/Creatinine Ratio 12.0 Glucose 143 H Lactate Calcium 9.2 Total Bilirubin 2.0 H AST 35 ALT 36 Alkaline Phosphatase 97 B-Natriuretic Peptide < 29.3 Total Protein 7.9 Albumin 4.3 Globulin 3.6 Albumin/Globulin Ratio 1.2 Lipase 36 Procalcitonin Urine RBC Urine WBC Ur Squamous Epith Cells Urine Bacteria Ur Culture Indicated? Micro UA Comment 11/06/17 11/07/17 11/07/17 15:06 05:07 05:07 WBC 10.4 RBC 4.36 Hgb 13.4 Hct 38.6 MCV 88.6 MCH 30.7 MCHC 34.6 RDW 13.3 Plt Count 184 Neut % (Auto) 91.7 H Lymph % (Auto) 6.3 L [place] % (Auto) 1.9 L Eos % (Auto) 0.0 L Baso % (Auto) 0.1 Neut # (Auto) 9500 H D-Dimer Sodium 135 L Potassium 3.9 Chloride 101 Carbon Dioxide 22 BUN 16 Creatinine 0.70 Estimated GFR > 60.0 BUN/Creatinine Ratio 22.9 H Glucose 239 H Lactate Calcium 9.0 Total Bilirubin AST ALT Alkaline Phosphatase B-Natriuretic Peptide Total Protein Albumin Globulin Albumin/Globulin Ratio Lipase Procalcitonin Urine RBC None seen Urine WBC 5-10/hpf H Ur Squamous Epith Cells 5-10 /hpf H Urine Bacteria None seen Ur Culture Indicated? Cult not indicated Micro UA Comment Not Reportable Assessment & Plan (1) COPD with exacerbation: Current visit: Yes Status: Acute (2) Community acquired pneumonia: Qualifiers: Laterality: right Lung location: lower lobe of lung Qualified Code(s) : J18.1 - Lobar pneumonia, unspecified organism Current visit: Yes Status: Acute (3) Tobacco abuse: Current visit: Yes Status: Chronic Plan: Plan: 57yo woman with COPD and tobacco abuse who presented with SOB, cough, and fever. In the ER, noted to be tachycardic and tachypneic with signfiicantly elevated WBC count. CXR was unrevealing, however abdominal CT completed due to mild abdominal pain showed right lower lobe pneumonia. Pt also with evidence of significant COPD exacerbation. D-dimer slightly elevated, negative LE dopplers. 1) COPD exacerbation: Was hypoxic to 88% last night, now requiring 2L of O2. Persistent wheezing on exam. - Solumedrol 60mg IV daily - Duonebs PRN - Continue home QVAR - RT consulted for breathing treatments 2) Right lower lobe pneumonia, community acquired: - Continue Levofloxacin 3) Tobacco abuse: - Ongoing cessation counseling DVT prophylaxis: Lovenox FEN: General diet Dispo: Ongoing hospitalization necessary due to persistent symptoms, and now O2 requirement. Anticipate 2 additional midnights. Will transition to inpatient status. Quality VTE Deep Vein Thrombosis/Pulmonary Embolism Present on Admission: No
[2017-11-07] MEDS: ENOXAPARIN 40 MG/0.4 ML SYRINGE SUBCUT (08:34)
[2017-11-07] MEDS: BECLOMETHASONE 80 MCG 1 PUFF INH ×2 (08:47→18:06)
[2017-11-07] MEDS: levoFLOXacin 750 MG/150 ML PIGGYBACK 100 MG IV (08:54)
[2017-11-07] MEDS: methylPREDNISolone 125 MG/2 ML VIAL 60 MG IV (08:54)
--- NOTE | 2017-11-07 14:18 | CM.DANOTE ---
DCP Assessment: Pt is a 57 yo female, current resident of [place]. Pt admitted d/t COPD/pneumonia. Pt's PCP is Stacy Pitts; Insurance is [place]/Medicaid. Reviewed chart. Per H+P, pt has chronic COPD and admits to smoking daily. Met w/pt this afternoon, explained SW role. Pt explains she has been indp/active up until recently; she has needed more resting breaks during any activity d/t SOB. Pt says she is trying to quit smoking and now only holds cigarettes up to her mouth and does not inhale. Pt would like a nicotine patch- will f/u w/RN Max about this. When asked about her living arrangement, pt becomes guarded and states she is in a bad situation, and is in process of moving out of her current home. Pt's dtr Renay has taken all of pt's belongings to her house. Pt explains she is now homeless but hopes to stay w/a friend in [place]. Pt's dtr already has people staying with her and can not have any usp guests. Pt accepts the pocket book edition of the [employer] Community Resource Guide and explains she will not go to [facility] or the drop in shelters in [place] or [place]. 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 Spoke w/Mariluz [phone] who reviewed a lengthy, and recent, history of pt applying and not showing up or calling back re steps to become a contracted and paid cg. Discussed above w/pt and encouraged her to either call the [facility] office and/or go to the office to figure out next steps. Pt also requests information about a home nebulizer machine. RT already aware of pt's need. Pt will need a Rx for a home machine and will need to deliver the Rx to a pharmacy. Once medically stable, pt plans on driving her own car to her friend's house to stay. She goes to the food bank, has food stamps, and denies further needs from this SWer. Pt will likely have close outpt f/u scheduled. Following for any further coordination of DC needs. MATEO Antoine
[2017-11-08 00:12] VITALS: BP 128/71; PULSE 98; RESP 20; TEMP 36.6; O2SAT 96
[2017-11-08 03:21] VITALS: O2SAT 95
[2017-11-08] MEDS: ALBUTEROL/IPRATROPIUM 3 ML AMPUL INH (03:21)
[2017-11-08] MEDS: BECLOMETHASONE 80 MCG 1 PUFF INH (03:28)
--- NOTE | 2017-11-08 04:14 | PC.NURSE ---
Noc shift note: Sleeping between care, easily arousable. Weaned to RA, with O2 sats 93-97%. Remain afebrile. Respiratory therapist notified at 0310 regarding Breathing tx requirement, due to persistent cough and mild wheezing, post Tx assessment with noted improved breathing effort. Up in room speaking in full sentences, no dyspnea noted at rest. Call light within reach .
[2017-11-08 04:30] VITALS: BP 99/59; PULSE 91; RESP 18; TEMP 36.7; O2SAT 92
[2017-11-08 07:40] VITALS: BP 102/55; PULSE 101; RESP 16; TEMP 36.6; O2SAT 94
[2017-11-08] MEDS: levoFLOXacin 750 MG/150 ML PIGGYBACK 100 MG IV (08:31)
[2017-11-08] MEDS: ENOXAPARIN 40 MG/0.4 ML SYRINGE SUBCUT (08:32)
[2017-11-08] MEDS: methylPREDNISolone 125 MG/2 ML VIAL 60 MG IV (08:32)
--- NOTE | 2017-11-08 09:16 | P.DS_ITS ---
History of Present Illness Date Patient Seen: 11/08/17 Time Patient Seen: 08:00 Chief complaint: COPD Narrative: Tamara Devine is a 57 year old woman with COPD and tobacco abuse who presented with shortness of breath, cough, and fever. The patient reports that for the past week she has been feeling increasingly short of breath. She has been using her albuterol rescue inhaler frequently. Three days ago, she started to developed subjective fevers. She states these have gotten ?very high.? She does endorse also having chills. Her cough also acutely worsened. Is now productive of dark yellow sputum. She denies significant nasal congestion, sore throat, ear pain. Prior to 1 week ago, she had been feeling at her baseline with the patient is currently in the process of moving, and has been working on packing her house. The patient denies any recent chest pain. She does endorse having bilateral leg cramping, worse this morning. She denies this being any worse with ambulation. Patient states that her COPD has been well controlled with just the QVAR generally. Discharge Providers Date of admission: 11/06/17 15:46 Primary care physician: Stacy Pitts MD Consults: 11/06/17 12:13 Consult to Respiratory Therapy Evaluate & Treat Comment: Physician Instructions: Evaluate and treat Discharge provider: Stacy Pitts MD Summary Discharge Diagnosis: COPD Community-acquired pneumonia Tobacco abuse Hospital Course: The patient presented with COPD exacerbation and pneumonia. She was treated with IV methylprednisolone, nebulizer treatments, and Levaquin. The patient's respiratory status initially declined, requiring 2 L of nasal cannula oxygen on the 1st night. She then improved significantly over the next 24 hrs. At the time of discharge, her shortness of breath had improved significantly. She was breathing comfortably on room air. She continued to have a cough, however was clearing her secretions effectively. Status at Discharge Functional status at discharge: independent ambulation Overall status at discharge: patient is progressing back to baseline Time Spent with Patient Greater than 30 minutes Time spent discussing smoking cessation with patient: 3 to 10 minutes Exam Vital Signs (past 8 hours): Vital Signs - 8 hr 3 11/08/17 03:21 11/08/17 04:30 11/08/17 07:40 Temperature 98.0 F 97.8 F Pulse Rate 91 H 101 H Respiratory Rate 18 16 Blood Pressure 99/59 L 102/55 L Pulse Oximetry 95 92 94 Pulse Oximetry 94 Oxygen Delivery Method Room Air Oxygen Flow Rate 2 Narrative Exam Narrative: Gen: NAD, sitting comfortably in bed, appears fatigued CV: RRR, no murmurs Resp: expiratory wheezing in all lung chua significantly improved from previously, no significant crackles, improved air movement Ext: no edema Objective Labs Result Diagrams: 11/07/17 05:07 11/07/17 05:07 Discharge Plan Discharge Plan Patient Disposition: Home, Self-Care Discharge comment: Continue Levofloxacin and Prednisone taper Continue home nebulizers Nicotine patch prescribed Provider Discharge Instructions Diet: Regular Wound Care Report to your healthcare provider any signs of infection, such as:: chills, fever Discharge Data Primary Care Provider: Stacy Pitts Attending Provider: Stacy Pitts Admit Date/Time: 11/06/17 15:46 Discharges patient from system. Discharge Date/Time: 11/08/17 10:58 Quality VTE Deep Vein Thrombosis/Pulmonary Embolism Present on Admission: No
[2017-11-08 09:48] VITALS: O2SAT 93
--- NOTE | 2017-11-08 10:52 | PC.NURSE ---
Pt seen by and has been discharged home,. IV removed after levoquin and solumedrol. Scripts sent to [facility]. Pt motivated to quit and will use nicotine patch. Taken by wheelchair to her car where she will drive herself home.
--- NOTE | 2017-11-08 11:49 | CM.DPC ---
DC Note: DC order in place; this TOOL AND DIE MANAGER checked in w/pt before she left the floor, pt up packing her bag. Pt denies further needs and plans to drive her car off the [facility] parking lot. DEAN
== END 2017-11-08 10:58 | disposition home or self-care (01) | DRG 140 ==
LOC: ED 15:20 → AC 15:47
PROVIDERS: Admitting Provider Family Medicine; Emergency Provider Nurse Practitioner Family; Family Provider Family Medicine; PCP Family Medicine; Visit Provider Family Medicine
DX: J44.0 Chronic obstructive pulmonary disease with (acute) lower respiratory infection (principal); J18.1 Lobar pneumonia, unspecified organism; J44.1 Chronic obstructive pulmonary disease with (acute) exacerbation; F17.210 Nicotine dependence, cigarettes, uncomplicated
CPT/HCPCS: 36415; 36591; 71046; 74177; 80048; 80053; 81003; 81015; 83605; 83690; 83880; 84145; 85025; 85379; 87040; 93970; 94640; 94667; 94760; 96365; 96366; 96375; 99221; 99232; 99238; 99283; 99285; 99406; J1650; J1956; J2930; J7613; Q9967

== ENCOUNTER 2017-12-10 14:30 | Outpatient (RCR) | payer OTHER, MEDICAID, SELFPAY ==
[2017-11-06 16:12] VITALS: BMI 21.4
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
== END 2018-02-26 13:20 ==
LOC: PHYS 14:30
PROVIDERS: Family Provider Family Medicine; PCP Family Medicine; Visit Provider Family Medicine
DX: M54.42 Lumbago with sciatica, left side (principal); G89.29 Other chronic pain
CPT/HCPCS: 97110; 97140; 97162

== ENCOUNTER 2018-01-20 12:09 | Observation (INO) | payer OTHER, MEDICAID, SELFPAY ==
[2017-11-06 16:12] VITALS: BMI 21.4
[2018-01-20] VITALS (13 sets, daily range): BP systolic 119–159; BP diastolic 61–89; PULSE 92–111; RESP 16–36; TEMP 36.4–37.3; O2SAT 94–99; BMI 22.1
--- NOTE | 2018-01-20 12:37 | ED.URI ---
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 98 (70-100) mg/dL Lactate 1.1 (0.7-2.1) mmol/L Calcium 9.0 (8.4-10.2) mg/dL Total Creatine Kinase 65 (30-135) U/L Troponin I < 0.012 (0.01-0.034) ng/mL B-Natriuretic Peptide (<100) Procalcitonin (<0.5) ng/mL Urine RBC 1-5/hpf (0-5/HPF) Urine WBC None seen (0-5/HPF) Ur Squamous Epith Cells 0-1 /hpf Urine Bacteria None seen (None) Ur Culture Indicated? Specimen cultured Micro UA Comment Not Reportable A. baumannii (PCR) (Not Detect) Yareli albicans (PCR) (Not Detect) C. glabrata (PCR) (Not Detect) C. krusei (PCR) (Not Detect) C. parapsilosis (PCR) (Not Detect) C. tropicalis (PCR) (Not Detect) Enterobacteriac sp PCR (Not Detect) E. cloacae complex PCR (Not Detect) Enterococcus sp PCR (Not Detect) E. coli (PCR) (Not Detect) H. influenzae (PCR) (Not Detect) Klebsiella oxytoca PCR (Not Detect) Klebsiella pneumoniae (Not Detect) List. monocytogenes PCR (Not Detect) N. meningitidis (PCR) (Not Detect) Proteus species (PCR) (Not Detect) Serratia marcescens PCR (Not Detect) Staphylococcus sp PCR (Not Detect) Staph aureus (PCR) (Not Detect) mecA-Methicil Res Gene (Not Detect) Streptococcus sp PCR (Not Detect) Group A Strep (PCR) (Not Detect) Strep agalactiae (PCR) (Not Detect) Strep pneumoniae (PCR) (Not Detect) P. aeruginosa (PCR) (Not Detect) Pedro/B-Vanco Res Genes KPC-Carbap Res Gene PCR (Not Detect) 01/21/18 Range/Units 12:12 WBC (4.5-11.0) X10^3/uL RBC (4.0-5.2) X10^6/uL Hgb (12.0-16.0) g/dL Hct (36-46) % MCV (80-100) fL MCH (26-34) PG MCHC (30-36) % RDW (11.6-14.8) % Plt Count (150-400) X10^3/uL Neut % (Auto) (50-75) % Lymph % (Auto) (25-40) % [place] % (Auto) (3-14) % Eos % (Auto) (2-4) % Baso % (Auto) (0-2) % Neut # (Auto) (6782-1908) /uL ABG pH (7.35-7.45) ABG pCO2 (35-45) mmHg ABG pO2 (80-105) mmHg ABG HCO3 (23-27) mmol/L ABG Total CO2 (23-27) mmol/L ABG O2 Saturation (95-100) % ABG Base Excess (-2-3) mmol/L FiO2 Sodium (137-145) mmol/L Potassium (3.4-5.1) mmol/L Chloride (98-107) mmol/L Carbon Dioxide (22-32) mmol/L BUN (7-17) mg/dL Creatinine (0.52-1.04) mg/dL Estimated GFR (>60) mL/min BUN/Creatinine Ratio (6-22) Glucose (70-100) mg/dL Lactate (0.7-2.1) mmol/L Calcium (8.4-10.2) mg/dL Total Creatine Kinase (30-135) U/L Troponin I (0.01-0.034) ng/mL B-Natriuretic Peptide (<100) Procalcitonin (<0.5) ng/mL Urine RBC (0-5/HPF) Urine WBC (0-5/HPF) Ur Squamous Epith Cells Urine Bacteria (None) Ur Culture Indicated? Micro UA Comment A. baumannii (PCR) Not detected (Not Detect) Yareli albicans (PCR) Not detected (Not Detect) C. glabrata (PCR) Not detected (Not Detect) C. krusei (PCR) Not detected (Not Detect) C. parapsilosis (PCR) Not detected (Not Detect) C. tropicalis (PCR) Not detected (Not Detect) Enterobacteriac sp PCR Not detected (Not Detect) E. cloacae complex PCR Not detected (Not Detect) Enterococcus sp PCR Not detected (Not Detect) E. coli (PCR) Not detected (Not Detect) H. influenzae (PCR) Not detected (Not Detect) Klebsiella oxytoca PCR Not detected (Not Detect) Klebsiella pneumoniae Not detected (Not Detect) List. monocytogenes PCR Not detected (Not Detect) N. meningitidis (PCR) Not detected (Not Detect) Proteus species (PCR) Not detected (Not Detect) Serratia marcescens PCR Not detected (Not Detect) Staphylococcus sp PCR Detected H (Not Detect) Staph aureus (PCR) Not detected (Not Detect) mecA-Methicil Res Gene Detected H (Not Detect) Streptococcus sp PCR Not detected (Not Detect) Group A Strep (PCR) Not detected (Not Detect) Strep agalactiae (PCR) Not detected (Not Detect) Strep pneumoniae (PCR) Not detected (Not Detect) P. aeruginosa (PCR) Not detected (Not Detect) Pedro/B-Vanco Res Genes Not Reportable KPC-Carbap Res Gene PCR Not detected (Not Detect) Discharge Plan Departure Patient Disposition: Admitted As Inpatient Clinical Impression: COPD with acute exacerbation Discharge Date/Time: 01/20/18 16:10 Interventions: ED Discharge Assessment Last Done: 01/20/18 15:49 Admit Date/Time: 01/20/18 15:47 Admit Provider: Stacy Pitts <Néstor Aponte DO - Last Filed: 01/22/18 09:18> Cosign ED Attending Brigidoature Attestation: I was immediately available in the department for consultation. Documentation has been reviewed. I agree with assessment and plan.
--- NOTE | 2018-01-20 12:46 | DI.RAD.S_ITS ---
PROCEDURE: XR CHEST 1V INDICATIONS: Shortness of breath over the past couple of days TECHNIQUE: One view of the chest was acquired. COMPARISON: [facility], [place], CHEST 1 VIEW, 03/13/2017, 7:19. [facility], [place], XR CHEST 2V, 11/06/2017, 12:54. FINDINGS: Surgical changes and devices: Cholecystectomy Lungs and pleura: No pleural effusions or pneumothorax. Lungs are clear. Mediastinum: Mediastinal contours appear normal. Heart size is normal. Bones and chest wall: No suspicious bony lesions. Overlying soft tissues appear unremarkable. Bilateral nipple shadows. IMPRESSION: 1. No acute cardiopulmonary abnormality. 2. Bilateral nipple shadows. 3. Status post cholecystectomy. Dictated by: Mikael Brown M.D. on 01/20/2018 at 13:05 Approved by: Mikael Brown M.D. on 01/20/2018 at 13:07
[2018-01-20] MEDS: ALBUTEROL/IPRATROPIUM 3 ML AMPUL INH ×3 (12:55→22:30)
[2018-01-20] MEDS: ALBUTEROL 2.5 MG/3 ML NEB (ADULT) INH (12:57)
[2018-01-20 13:03] LABS: Add Manual Diff / Slide Review NO; Eosinophils Percent Auto 18.8 % (2-4); Hematocrit 42.9 % (36-46); Hemoglobin 14.3 g/dL (12.0-16.0); Lymphocytes Percent Auto 29.4 % (25-40); Mean Corpuscular HGB Conc 33.3 % (30-36); Mean Corpuscular Hemoglobin 30.3 PG (26-34); Mean Corpuscular Volume 90.9 fL (80-100); Neutrophils Absolute Auto 5400 /uL (3000-5900); Neutrophils Percent Auto 45.8 % (50-75); Platelet Count 270 X10^3/uL (150-400); Red Blood Cell Count 4.72 X10^6/uL (4.0-5.2); Red Cell Distribution Width 14.9 % (11.6-14.8); White Blood Cell Count 11.8 X10^3/uL (4.5-11.0)
[2018-01-20] MEDS: SODIUM CHLORIDE 0.9% 1,000 ML 1000 ML IV (13:08)
[2018-01-20] MEDS: methylPREDNISolone 125 MG/2 ML VIAL IV (13:09)
[2018-01-20] MEDS: ALBUTEROL 2.5 MG/3 ML NEB (ADULT) 7.5 MG INH (13:18)
[2018-01-20 13:20] LABS: Fractionated Inspired Oxygen 0.21; HCO3 ABG 24 mmol/L (23-27); Oxygen Saturation ABG 94 % (95-100); PCO2 ABG 37.6 mmHg (35-45); PO2 ABG 69 mmHg (80-105); TCO2 ABG 25 mmol/L (23-27); pH ABG 7.41 (7.35-7.45)
[2018-01-20 13:25] LABS: B Type Natriuretic Peptide < 100.0 (<100)
[2018-01-20 13:26] LABS: Lactate (Lactic Acid) 1.1 mmol/L (0.7-2.1)
--- NOTE | 2018-01-20 13:34 | ED_ITS ---
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 (70-100) mg/dL Lactate 1.1 (0.7-2.1) mmol/L Calcium 9.0 (8.4-10.2) mg/dL Total Creatine Kinase 65 (30-135) U/L Troponin I < 0.012 (0.01-0.034) ng/mL B-Natriuretic Peptide (<100) Procalcitonin (<0.5) ng/mL Urine RBC 1-5/hpf (0-5/HPF) Urine WBC None seen (0-5/HPF) Ur Squamous Epith Cells 0-1 /hpf Urine Bacteria None seen (None) Ur Culture Indicated? Specimen cultured Micro UA Comment Not Reportable A. baumannii (PCR) (Not Detect) Yareli albicans (PCR) (Not Detect) C. glabrata (PCR) (Not Detect) C. krusei (PCR) (Not Detect) C. parapsilosis (PCR) (Not Detect) C. tropicalis (PCR) (Not Detect) Enterobacteriac sp PCR (Not Detect) E. cloacae complex PCR (Not Detect) Enterococcus sp PCR (Not Detect) E. coli (PCR) (Not Detect) H. influenzae (PCR) (Not Detect) Klebsiella oxytoca PCR (Not Detect) Klebsiella pneumoniae (Not Detect) List. monocytogenes PCR (Not Detect) N. meningitidis (PCR) (Not Detect) Proteus species (PCR) (Not Detect) Serratia marcescens PCR (Not Detect) Staphylococcus sp PCR (Not Detect) Staph aureus (PCR) (Not Detect) mecA-Methicil Res Gene (Not Detect) Streptococcus sp PCR (Not Detect) Group A Strep (PCR) (Not Detect) Strep agalactiae (PCR) (Not Detect) Strep pneumoniae (PCR) (Not Detect) P. aeruginosa (PCR) (Not Detect) Pedro/B-Vanco Res Genes KPC-Carbap Res Gene PCR (Not Detect) 01/21/18 Range/Units 12:12 WBC (4.5-11.0) X10^3/uL RBC (4.0-5.2) X10^6/uL Hgb (12.0-16.0) g/dL Hct (36-46) % MCV (80-100) fL MCH (26-34) PG MCHC (30-36) % RDW (11.6-14.8) % Plt Count (150-400) X10^3/uL Neut % (Auto) (50-75) % Lymph % (Auto) (25-40) % Murray % (Auto) (3-14) % Eos % (Auto) (2-4) % Baso % (Auto) (0-2) % Neut # (Auto) (5033-5432) /uL ABG pH (7.35-7.45) ABG pCO2 (35-45) mmHg ABG pO2 (80-105) mmHg ABG HCO3 (23-27) mmol/L ABG Total CO2 (23-27) mmol/L ABG O2 Saturation (95-100) % ABG Base Excess (-2-3) mmol/L FiO2 Sodium (137-145) mmol/L Potassium (3.4-5.1) mmol/L Chloride (98-107) mmol/L Carbon Dioxide (22-32) mmol/L BUN (7-17) mg/dL Creatinine (0.52-1.04) mg/dL Estimated GFR (>60) mL/min BUN/Creatinine Ratio (6-22) Glucose (70-100) mg/dL Lactate (0.7-2.1) mmol/L Calcium (8.4-10.2) mg/dL Total Creatine Kinase (30-135) U/L Troponin I (0.01-0.034) ng/mL B-Natriuretic Peptide (<100) Procalcitonin (<0.5) ng/mL Urine RBC (0-5/HPF) Urine WBC (0-5/HPF) Ur Squamous Epith Cells Urine Bacteria (None) Ur Culture Indicated? Micro UA Comment A. baumannii (PCR) Not detected (Not Detect) Yareli albicans (PCR) Not detected (Not Detect) C. glabrata (PCR) Not detected (Not Detect) C. krusei (PCR) Not detected (Not Detect) C. parapsilosis (PCR) Not detected (Not Detect) C. tropicalis (PCR) Not detected (Not Detect) Enterobacteriac sp PCR Not detected (Not Detect) E. cloacae complex PCR Not detected (Not Detect) Enterococcus sp PCR Not detected (Not Detect) E. coli (PCR) Not detected (Not Detect) H. influenzae (PCR) Not detected (Not Detect) Klebsiella oxytoca PCR Not detected (Not Detect) Klebsiella pneumoniae Not detected (Not Detect) List. monocytogenes PCR Not detected (Not Detect) N. meningitidis (PCR) Not detected (Not Detect) Proteus species (PCR) Not detected (Not Detect) Serratia marcescens PCR Not detected (Not Detect) Staphylococcus sp PCR Detected H (Not Detect) Staph aureus (PCR) Not detected (Not Detect) mecA-Methicil Res Gene Detected H (Not Detect) Streptococcus sp PCR Not detected (Not Detect) Group A Strep (PCR) Not detected (Not Detect) Strep agalactiae (PCR) Not detected (Not Detect) Strep pneumoniae (PCR) Not detected (Not Detect) P. aeruginosa (PCR) Not detected (Not Detect) Pedro/B-Vanco Res Genes Not Reportable KPC-Carbap Res Gene PCR Not detected (Not Detect) Discharge Plan Departure Patient Disposition: Admitted As Inpatient Clinical Impression: COPD with acute exacerbation Discharge Date/Time: 01/20/18 16:10 Interventions: ED Discharge Assessment Last Done: 01/20/18 15:49 Admit Date/Time: 01/20/18 15:47 Admit Provider: Stacy Pitts <Néstor Aponte DO - Last Filed: 01/22/18 09:18> Cosign ED Attending Brigidoature Attestation: I was immediately available in the department for consultation. Documentation has been reviewed. I agree with assessment and plan.
[2018-01-20 13:37] LABS: Blood Urea Nitrogen 12 mg/dL (7-17); Carbon Dioxide 25 mmol/L (22-32); Chloride 105 mmol/L (98-107); Creatine Kinase 65 U/L (30-135); Estimated Glomerular Filt Rate > 60.0 mL/min (>60); Glucose 98 mg/dL (70-100); HEMOLYSIS 17 (0-50); Potassium 4.1 mmol/L (3.4-5.1); Sodium 139 mmol/L (137-145)
[2018-01-20 13:54] LABS: Troponin I < 0.012 ng/mL (0.01-0.034)
[2018-01-20 13:55] LABS: Procalcitonin < 0.05 ng/mL (<0.5)
--- NOTE | 2018-01-20 14:25 | PC.NURSE ---
Called daughter Renay for patient at [phone] [place] [facility] [place]
[2018-01-20 14:41] LABS: Bacteria Urine None Seen; WBC Urine None Seen (0-5/HPF)
[2018-01-20 14:54] LABS: Culture Indicated Urine Specimen Cultured; RBC Urine 1-5/HPF (0-5/HPF); Squamous Epithelial Cell Urine 0-1 /HPF
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
[2018-01-20] MEDS: SODIUM CHLORIDE 0.9% 1,000 ML 150 ML IV (17:30)
[2018-01-20] MEDS: NICOTINE 14 PATCH 14 MG TOP ×2 (17:30→17:32)
[2018-01-20] MEDS: ACETAMINOPHEN 325 MG TABLET 650 MG PO (17:32)
[2018-01-20] MEDS: BENZONATATE 100 MG CAPSULE PO (21:18)
--- NOTE | 2018-01-20 21:42 | PC.ADMIT ---
9731 [facility] Admission Note: The patient,Tamara Devine,57 y/o, was given written information regarding hospital policies, unit procedures and contact persons. Patient's smoking status: Former smoker. Vital Signs - 8 hr 01/20/18 14:17 01/20/18 15:13 01/20/18 15:37 Temperature Pulse Rate 104 H 100 H 101 H Respiratory Rate 25 H 22 23 Blood Pressure Blood Pressure [Left Arm] 159/74 H 156/89 H 137/83 H Pulse Oximetry 01/20/18 16:35 01/20/18 17:08 01/20/18 18:19 Temperature 98.3 F 99.2 F Pulse Rate 105 H 106 H 111 H Respiratory Rate 16 18 Blood Pressure 132/61 H 123/76 H Blood Pressure [Left Arm] Pulse Oximetry 96 98 95 01/20/18 20:38 Temperature 98.1 F Pulse Rate 108 H Respiratory Rate 16 Blood Pressure 119/68 Blood Pressure [Left Arm] Pulse Oximetry 97 Patient admitted to 209. Awake & oriented x 3, patient appears hyperactive and impulsive, it took about 15 minutes for her to settle down and lay in bed so we could get her VS and weight. HR tachycardic at 114 bpm, rhythm regular. Tele placed post-admission as monitor not brought up by ER, rhythm sinus tach. RA oxygen 95-98%, patient denies SOB unless she starts coughing. Sometimes coughs for 5-10 minutes, bending at waist splinting abdomen. LS very tight with slight expiratory wheeze, RT up to give neb treatment. Nicotine patch applied to her left shoulder. She reports I quit 6 months ago. Until now patient was wearing continuous pulse ox, sats maintaining 95-98% on room air. Monitor removed now per patient request. NS infusing to IV RAC at 150 ml/hour. IV to RAC is positional, beeping intermittently. IV to LFA also positional & pump alarming often. I removed LFA iV drsg/tape, found IV cannula straight but right up against valve. After pulling back on cannula approx 2 cm and redressing/taping, IV now infusing with no further difficulty. Pt requesting cough syrup, I called Dr Lawton who is payroll consultant for Dr Pitts, he gave new order for Tessalon Pearles prn. Tessalon angela given to patient, medication teaching given. She remains Ox3 and is using call button appropriately. Instructed to call staff if she needs any assistance.
[2018-01-20] MEDS: BECLOMETHASONE 80 MCG INH 10.6 GM 1 PUFF INH (22:29)
[2018-01-21] VITALS (13 sets, daily range): BP systolic 130–150; BP diastolic 66–79; PULSE 80–103; RESP 14–22; TEMP 35.9–37; O2SAT 90–97
--- NOTE | 2018-01-21 | DI.RAD.S_ITS ---
PROCEDURE: XR KNEE RT 3V INDICATIONS: right knee pain TECHNIQUE: 3 views of the knee were acquired. COMPARISON: None. FINDINGS: Bones: No fractures or dislocations. No suspicious bony lesions. Soft tissues: No joint effusion. No suspicious soft tissue calcifications. IMPRESSION: Normal knee Dictated by: Mikael Brown M.D. on 01/21/2018 at 14:52 Approved by: Mikael Brown M.D. on 01/21/2018 at 14:53
[2018-01-21] MEDS: IBUPROFEN 400 MG TABLET PO ×2 (00:28→05:53)
[2018-01-21] MEDS: GUAIFENESIN/DM 200/20 MG/10 ML UDC PO ×2 (00:29→09:20)
[2018-01-21] MEDS: SODIUM CHLORIDE 0.9% 1,000 ML 150 ML IV ×4 (00:31→22:59)
--- NOTE | 2018-01-21 00:32 | PC.NURSE ---
Addendum entered by Reina Hale R.N. 01/21/18 05:57: Slept at intervals with much less coughing after Guaifenesin DM given. Awake this morning with increased cough and complaint of 7/10 headache. Medicated with Tessalon and Ibuprofen and RT contacted for Rx treatment per patient request. Original Note: Addendum entered by Reina Hale R.N. 01/21/18 01:36: Late entry: patient refusing to have pulse oximetry on during the night. Original Note: Patient is alert and oriented. Breath sounds with expiratory wheezes in right lobes and left lower lobe; RA sat 99%. Has frequent harsh cough sometimes productive of clear and/or yellow sputum. SOB with exertion of coughing. Complains of 8/10 rib pain due to cough and states Tylenol does not help. Dr Lawton informed that patient requesting something stronger for pain and additional for cough; see new orders. HRR but tachy at 102 bpm. Telemetry reading at [address] Denies nausea. BT present and abdomen is soft. Stress incontinence so wearing small pad. Independent with bed mobility and SBA when up to bathroom. Fall risk score is medium and bed alarm is currently activated.
[2018-01-21] MEDS: BENZONATATE 100 MG CAPSULE PO ×2 (05:48→14:29)
[2018-01-21] MEDS: ALBUTEROL/IPRATROPIUM 3 ML AMPUL INH ×5 (06:07→20:17)
[2018-01-21] MEDS: methylPREDNISolone 125 MG/2 ML VIAL 60 MG IV (09:20)
[2018-01-21] MEDS: ENOXAPARIN 30 MG/0.3 ML SYRINGE SUBCUT (09:21)
--- NOTE | 2018-01-21 09:49 | PC.NURSE ---
Addendum entered by Asia Colon R.N. 01/21/18 14:44: Approx 1400, on the way back from the bathroom (unwitnessed by this song writer) patient C/O her R knee kind of buckling and it felt like something snapped or popped in there. Rating pain in R knee 03/19. This song writer placed ice packs to R knee, medicated with PRN Tylenol and called Dr Pitts to inform her of the same. Received order for R knee x-ray which was done. She wanted us to see how the Tylenol worked for the pain and to call her if it doesn't control pain well enough. Original Note: Shift summary: Alert and oriented X3. Reports breathing definitely better than at time of admission. Remains SOB with exertion and coughing, and occasionally SOB at rest. Is able to speak in full sentences without becoming too SOB. SpO2 on RA 97%. Refuses cont pulse ox. Lungs clear, dim throughout. Intermittent cough, occasionally productive. Given PRN cough medicine with a.m. meds, patient aware she can request Tessalon at any time should cough not be relieved by med given. IVF per order, site in L forearm WNL. Resting back in bed after sitting up for breakfast, hoping to sleep for a little bit. Calls appropriately for SBA to BR, light and belongings in reach.
[2018-01-21] MEDS: BECLOMETHASONE 80 MCG INH 10.6 GM 1 PUFF INH ×2 (13:23→20:15)
[2018-01-21 13:55] LABS: Enterococcus species Not Detected (Not Detect); Listeria monocytogenes Not Detected (Not Detect); Methicillin-resistant gene Detected (Not Detect)
[2018-01-21 13:56] LABS: Acinetobacter baumannii Not Detected (Not Detect); Candida albicans Not Detected (Not Detect); Candida glabrata Not Detected (Not Detect); Candida krusei Not Detected (Not Detect); Candida parapsilosis Not Detected (Not Detect); Candida tropicalis Not Detected (Not Detect); E. coli Not Detected (Not Detect); Enterobacter cloacae complex Not Detected (Not Detect); Enterobacteriaceae species Not Detected (Not Detect); Haemophilus influenzae Not Detected (Not Detect); KPC (carbapenem-resist gene) Not Detected (Not Detect); Neisseria meningitidis Not Detected (Not Detect); Proteus species Not Detected (Not Detect); Pseudomonas aeruginosa Not Detected (Not Detect); Serratia marcescens Not Detected (Not Detect); Streptococcus agalactiae (Gr B Not Detected (Not Detect); Streptococcus pneumonia Not Detected (Not Detect); Streptococcus pyogenes (Gr A) Not Detected (Not Detect); Streptococcus species Not Detected (Not Detect)
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
[2018-01-21] MEDS: ACETAMINOPHEN 325 MG TABLET 650 MG PO (14:15)
[2018-01-21 14:44] LABS: Staphylococcus species Detected (Not Detect)
--- NOTE | 2018-01-21 16:57 | CM.DANOTE ---
Discharge Planning/Care Management CM Discharge Assessment Start: 01/21/18 16:56 Freq: Status: Active Protocol: Document 01/21/18 16:56 (Rec: 01/21/18 16:57 [id number]) Discharge Planning Assessment Assigned Ticket Maker [employer] INST[employer]ER Advance Directives? No Advance Directives on File No History Provided By Patient Family Member Medical Record Has Patient been admitted in last 30 No days? Prior Living Arrangements House Household Members significant other friend(s) Independent with ADL's Yes Is patient alert and oriented? Yes Discharge Plan Home Transportation Arrangement Car in the parking lot Additional Comment Lives with daughter in [place] and boyfriend in [facility]. Whiteboard Updated in Patient Room with Yes name and ext. # of Ticket Maker Review Status In Process Next Review Type Continued Stay Review Met with patient: daughter was in room as well. Patient said she is ready to go home but first wants her knee looked at. Per RN, X-ray has been ordered. Patient states she lives with her daughter and her boyfriend in [place] depending on the day. Patient has no concerns or needs at this time. Plan: likely discharge home tomorrow. Patient will drive herself home.
--- NOTE | 2018-01-21 17:44 | PT.IIE ---
Current Diagnoses Chronic obstructive pulmonary disease with (acute) exacerbation (01/20/18) Tobacco use (01/20/18) Medical History (Last Reviewed 01/20/18 @ 13:32 by ARIADNA Rios) Cholecystectomy planned (Acute) Ankle pain (Chronic) Anxiety (Chronic) COPD (chronic obstructive pulmonary disease) (Chronic 2017) CTS (carpal tunnel syndrome) (Chronic) Chronic back pain (Chronic) Diastolic heart failure (Chronic) Foot pain (Chronic) Hemorrhoids (Chronic) IBS (irritable bowel syndrome) (Chronic) Irregular periods/menstrual cycles (Chronic 1976) Migraines (Chronic 1979) Painful menstrual periods (Chronic 1976) Peptic ulcer disease (Chronic ~1978) Shoulder pain (Chronic) Tinnitus (Chronic) Fractures (Resolved 1987) Genital warts (Resolved 1983) Stroke (Resolved) Vertigo (Resolved) Physical Therapy Inpatient Evaluation/Re-Eval M1 PT/OT-IP Prior Functional Status Start: 01/21/18 17:29 Freq: NEEDED Status: Active Protocol: Document 01/21/18 17:30 EA (Rec: 01/21/18 17:44 EA [id number]) Medical Review Prior Functional Status Medical History Reviewed Yes Diet/Fluid Consistency Regular Communication alert, oriented x 3 Mobility and Gait Indep with ability to ambulate more than 1 block prior to rest due to SOB. No assisstive used Social History Household Members significant other friend(s) Living Arrangements Mobile home Employment Status Unemployed Additional Social History Comment Lives her Boyfriend. M2 PT-IP Current Condition Start: 01/21/18 17:29 Freq: NEEDED Status: Active Protocol: Document 01/21/18 17:30 EA (Rec: 01/21/18 17:44 EA [id number]) Physical Therapy Current Condition Current Condition Evaluation Date 01/21/18 Onset Date 01/20/18 Precautions Other Precautions To call nurse if with severe SOB Weight Bearing Status Weight Bearing Status Full Weight Bearing M3 PT-IP Subjective Start: 01/21/18 17:29 Freq: NEEDED Status: Active Protocol: Document 01/21/18 17:30 EA (Rec: 01/21/18 17:44 EA [id number]) Subjective Physical Therapy Visit Type Type Initial Evaluation Total Visit Minutes 30 Physical Therapy Visit Comments Patient Comments Patient reports that she has been in/out of bed indep but requires frequent break. Short Term Goals Back to previous level of function M4 PT-IP Mobility and Gait Start: 01/21/18 17:29 Freq: NEEDED Status: Active Protocol: Document 01/21/18 17:30 EA (Rec: 01/21/18 17:44 EA [id number]) PT-Bed Mobility Assessment Rolling Level of Assist Independent Supine to Sit Supine to Sit Independent Sit to Supine Sit to Supine Independent Scooting Scooting to Edge of Bed Independent PT-Transfer Assessment Sit to and From Stand Sit to and from Stand Independent Equipment Transfer Assistive Device None Transfers Transfer Destination Bed Chair Toilet Wheelchair Transfer Technique stepping Transfer Ability Level of Assist Independent Comments Mobility Comments Patient exhibits indep in all functional transfers and mobility Gait Assessment Gait Gait Assistance Required: Independent Distance (Feet) (feet) 30 Assistive Devices Assistive Device None Gait Deviations General Gait Pattern Within Normal Limits Comments Gait Comments No gait deviations noted PT-Balance Assessment Sitting Balance and Reactions Static Sitting Balance Ability Normal Dynamic Sitting Balance Ability Normal Standing Balance and Reactions Static Standing Balance Ability Normal Dynamic Standing Balance Ability Normal Balance Tests Single Limb Standing more than 5 seconds left and right Functional Reach Test More than 12' M5 PT-IP Objective Assessments Start: 01/21/18 17:29 Freq: NEEDED Status: Active Protocol: Document 01/21/18 17:30 EA (Rec: 01/21/18 17:44 EA [id number]) Orientation Orientation/Cognition Level of Alertness Alert Orientation Name Month Date Language Function Ability No Deficits Noted Gross Range of Motion Upper Extremity ROM Assessment Within Functional Limits Lower Extremity ROM Assessment Within Functional Limits Strength Upper Extremity Strength Assessment Within Functional Limits Lower Extremity Strength Assessment Within Functional Limits Coordination Assessment Gross Coordination Gross Coordination WNL Sensation Assessment Sensation Gross Sensation WNL M7 PT-IP Assessment and Plan Start: 01/21/18 17:29 Freq: NEEDED Status: Active Protocol: Document 01/21/18 17:30 EA (Rec: 01/21/18 17:44 EA [id number]) PT Summary Assessment and Plan Potential Status of Condition at Evaluation Stable Summary Assessment Summary Patient exhibits indep in all functional transfers and mobility. No gait deviations noted with ability to stand on single leg without apprehension. No noted acute signs of inflammation left knee or right knee. Patient requires rest after 20 ft of amb due to increased SOB, however SAO2 reveals normal 94 -96 before, during and after. Patient is not a good candidate for skilled PT at this time.
[2018-01-21] MEDS: NICOTINE 14 PATCH 14 MG TOP (18:59)
[2018-01-22] VITALS (14 sets, daily range): BP systolic 131–143; BP diastolic 75–96; PULSE 79–97; RESP 15–20; TEMP 36.6–36.9; O2SAT 91–98
[2018-01-22] MEDS: ALBUTEROL/IPRATROPIUM 3 ML AMPUL INH ×5 (01:44→18:39)
[2018-01-22] MEDS: ACETAMINOPHEN 325 MG TABLET 650 MG PO ×2 (01:50→13:46)
[2018-01-22] MEDS: BENZONATATE 100 MG CAPSULE PO ×4 (01:50→18:13)
--- NOTE | 2018-01-22 01:58 | PC.NURSE ---
Addendum entered by Reina Hale R.N. 01/22/18 06:58: Continuing to have persistent, frequent cough so medicated with Guaifenesin DM. Original Note: Addendum entered by Reina Hale R.N. 01/22/18 06:26: Patient slept for past few hours with only occasional coughing heard. Now awake with persistent cough, SOB and restlessness. RA sat 97%. Medicated with Tessalon and RT providing neb treatment. Also complains of 6/10 abdominal pain so medicated with Ibuprofen. Original Note: Patient has been sleeping since start of shift, but now awake and with persistent cough causing increasing SOB. Unable to speak in full sentences and doing some purse lip breathing. RA sat 93% and has expiratory wheezing throughout. Administered neb Rx after which she was able to expectorate some yellow sputum. States she is having rib/right sided abdominal pain which she rates as 9/10 so medicated with Tylenol (her choice). Also provided Tessalon Pearles for relief of cough. Is alert and oriented. HRR but tachy at 103 during coughing episode and now in high 90's. Telemetry reading at [address] Denies nausea. BT present and abdomen is soft. Denies urinary concerns. Independent with mobility and is steady on feet. Fall risk score is medium; bed alarm is not in use at this time.
[2018-01-22] MEDS: SODIUM CHLORIDE 0.9% 1,000 ML 150 ML IV ×3 (02:49→16:00)
[2018-01-22] MEDS: IBUPROFEN 400 MG TABLET PO (06:20)
[2018-01-22] MEDS: BECLOMETHASONE 80 MCG INH 10.6 GM 1 PUFF INH ×2 (06:24→18:39)
[2018-01-22] MEDS: GUAIFENESIN/DM 200/20 MG/10 ML UDC PO (06:56)
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
[2018-01-22] MEDS: ENOXAPARIN 40 MG/0.4 ML SYRINGE SUBCUT (08:59)
[2018-01-22] MEDS: methylPREDNISolone 125 MG/2 ML VIAL 60 MG IV (09:00)
[2018-01-22] MEDS: DOCUSATE 100 MG CAPSULE 200 MG PO (09:00)
[2018-01-22] MEDS: guaiFENesin ER 600 MG TAB 1200 MG PO ×2 (09:00→20:55)
--- NOTE | 2018-01-22 15:35 | PC.NURSE ---
Resp: Had difficulty w/cough this am, hard to breath, using accessory muscles when up and moving. rr 36-44, heart rate 100's to 120's. Ribs sore from coughing so much, denies this is c/p. Hard to eat, gets sob quickly when eating. Was able to get some yellow mucous up yesterday, hasn't been able to get the mucous broken up and moving today and md was made aware. Started mucinex which she received this am. She was improved after treatment given, rr down to 18 to 26, hr down to 80's. Sats have remained at 93 to 97% at all times. Cont pulse ox on except when she was eating. She was able to consume more food at lunch time. Early afternoon she had another coughing spell and feeling sob. RT again came and worked w/pt, she was given some tessalon oral. Vital signs and O2 have remained in the same parameters as this am. After treatment pt reported she felt better once again. Pt has also reported she was sleepless last night and has had some heartburn this afternoon and md Pitts was called and see new orders for those concerns. Cont w/poc.
[2018-01-22] MEDS: CALCIUM CARBONATE 500 MG TAB 1000 MG PO ×2 (16:09→20:55)
[2018-01-22] MEDS: NICOTINE 14 PATCH 14 MG TOP (17:22)
--- NOTE | 2018-01-22 22:10 | PC.NURSE ---
ITA SHIFT NOTE: Patient doing well this shift. Coughing has been reduced with Mucinex and tesslon perles. Patient able to shower this shift, and reports feeling much better. Patient walked around unit this shift with oxygen remaining at 97% or better while ambulating. Patient now saline locked. Reports minimal pain but declines pain medication. No acute distress, will continue to monitor.
[2018-01-23] VITALS (8 sets, daily range): BP systolic 131–146; BP diastolic 81–87; PULSE 78–90; RESP 16–18; TEMP 36.2–36.6; O2SAT 94–98
[2018-01-23] MEDS: ALBUTEROL/IPRATROPIUM 3 ML AMPUL INH ×3 (02:25→13:30)
[2018-01-23] MEDS: ACETAMINOPHEN 325 MG TABLET 650 MG PO ×2 (02:33→12:14)
[2018-01-23] MEDS: BENZONATATE 100 MG CAPSULE PO ×2 (02:33→12:27)
--- NOTE | 2018-01-23 02:48 | PC.NURSE ---
Addendum entered by Reina Hale R.N. 01/23/18 05:51: Starting in with coughing episode again this morning so neb Rx being provided. States sharp back pain is 7/10 but I can deal with it. Original Note: Patient has been asleep since start of shift but now awake and assisted to bathroom to void. Had not been coughing and breath sounds with expiratory wheezes throughout. Once back to bed began having increased cough causing SOB and extreme restlessness/anxiety. Neb treatment provided and coughing improved. Both HR and BP quite elevated with episode but now BP back down to 131/1 and HR at 83. Medicated with Tessalon to help with cough. Coughing up white sputum tinged with yellow. Complains of abdominal/ribcage pain radiating into back so medicated with Tylenol. Independent with mobility. Fall risk score is medium but bed alarm not believed to be necessary at this time. Gets up to bathroom to void and denies dysuria, frequency, urgency or incontinence.
[2018-01-23] MEDS: CALCIUM CARBONATE 500 MG TAB 1000 MG PO (02:53)
--- NOTE | 2018-01-23 08:25 | P.DS_ITS ---
History of Present Illness Date Patient Seen: 01/23/18 Time Patient Seen: 08:15 Chief complaint: SOB Narrative: The patient is a 57-year-old woman with a history of COPD and tobacco abuse who presents with shortness of breath. She was hospitalized from 11/06 and till 11/08 with a COPD exacerbation and pneumonia. The patient reports that upon discharge home from a hospitalization, she felt well for a few weeks, but since then has had progressively worsening shortness of breath and cough. She did not call clinic for appointment because she was hopeful that it would get better. This morning, she woke up feeling extremely short of breath. She was unable to complete a sentence. She contacted the nurses line who recommended she come to the emergency room for evaluation. The patient does endorse having a frequent cough that is mildly wet, but nonproductive. She feels that she has been unable to clear her cough. She denies any fevers or chills. She has been feeling fatigued recently. She does have chest wall pain due to the frequent coughing. The patient also reports having single episode of chest pain last night that fell deeper inside. It was not associated with diaphoresis, nausea, palpitations, and was nonradiating. She has had no pain since that time and prior to that either. In the emergency department, the patient received multiple nebulizer treatments in addition to IV steroids. While initially it was thought she may require BiPAP, her respiratory status improved significantly and she is stable on 2 L of oxygen. Chest x-ray was normal. Discharge Providers Date of admission: 01/20/18 15:47 Primary care physician: Stacy Pitts MD Consults: 01/20/18 12:45 Consult to Respiratory Therapy Evaluate & Treat Comment: Physician Instructions: Evaluate and treat 01/20/18 17:02 Consult to Gas Appliance Adjuster Routine Comment: 01/21/18 14:14 Consult to Physical Therapy Evaluate & Treat Comment: Physician Instructions: Evaluate and Treat Discharge provider: Stacy Pitts MD Summary Discharge Diagnosis: COPD exacerbation Tobacco abuse Hospital Course: The patient was admitted with a COPD exacerbation. Chest x- ray showed no evidence of pneumonia. She was started on IV steroids in addition to frequent nebulizer treatments. The patient's respiratory status continued to improve day today. She was weaned from her nasal cannula oxygen. Her lung sounds cleared significantly. At the time of discharge, she was ambulating without significant shortness of breath and with stable O2 saturations. She will continue her steroid taper at home. She will also continue frequent nebulizer treatments. The patient did exhibit significant panic, particularly in the evening, related to her COPD exacerbation. She will be started on hydroxyzine at discharge to help with this. Status at Discharge Functional status at discharge: independent ambulation Overall status at discharge: patient is progressing back to baseline Time Spent with Patient Greater than 30 minutes Time spent discussing smoking cessation with patient: 3 to 10 minutes Exam Vital Signs (past 8 hours): - 01/23/18 01:55 01/23/18 02:25 01/23/18 02:47 Temperature Pulse Rate 78 90 Respiratory Rate 18 Blood Pressure Pulse Oximetry 95 97 01/23/18 02:51 01/23/18 06:00 01/23/18 06:02 Temperature 97.9 F 97.2 F L Pulse Rate 82 86 Respiratory Rate 16 18 Blood Pressure 131/81 H 131/81 H Pulse Oximetry 96 96 94 Oxygen Delivery Method Room Air Oxygen Flow Rate 0 Narrative Exam Narrative: General: No acute distress, lying comfortably in bed, speaking easily in complete sentences, no coughing, no significant shortness of breath CV: Regular rate and rhythm, no murmurs Respiratory: Mild end expiratory wheezes in bilateral bases, air movement normal throughout, no significant crackles Abdomen: Soft, nontender, nondistended Extremities: No edema Objective Labs Result Diagrams: 01/20/18 12:30 01/20/18 13:00 Labs: Laboratory Results - last 24 hr 01/20/18 12:45 ABG pH 7.41 ABG pCO2 37.6 ABG pO2 69 L ABG HCO3 24 ABG Total CO2 25 ABG O2 Saturation 94 L ABG Base Excess -1.0 FiO2 0.21 Discharge Plan Discharge Plan Patient Disposition: Home, Self-Care Provider Discharge Instructions Diet: Regular Activity: Limit outside exposure while air is still very smoky Skin/Wound/Dressing Care Report to your healthcare provider any signs of infection, such as:: chills, fever Discharge Data Primary Care Provider: Stacy Pitts Attending Provider: Stacy Pitts Admit Date/Time: 01/20/18 15:47 Quality VTE Deep Vein Thrombosis/Pulmonary Embolism Present on Admission: No
[2018-01-23] MEDS: MAG HYDROX/ALUMINUM/SIMETH SUS 20 ML, LIDOCAINE VISCOUS 2% 15 ML PO (09:04)
[2018-01-23] MEDS: guaiFENesin ER 600 MG TAB 1200 MG PO (09:08)
[2018-01-23] MEDS: methylPREDNISolone 125 MG/2 ML VIAL 60 MG IV (09:12)
[2018-01-23 09:17] LABS: Creatine Kinase 31 U/L (30-135)
--- NOTE | 2018-01-23 09:23 | PC.NURSE ---
Tamara complained of mid-sternal pain radiating up to jaw at 0850 this am partway thru her brkfst. BP 140/78, HR 86 and sinus rythmn on tele. O2 sat 98% on RA. No dyspnea or complaints of feeling short of breath. Dr. Pitts informed. Stat EKG and troponin done. Followup BP 140/90, HR 76, O2 sat 99% on RA. Given GI cocktail. Presently Tamara is resting in bed and states I'm OK, pain is much better now. Follow up phonecall and update with Dr. Pitts done; she will order Vistaril as well. Will hold disch. until Troponin resulted and pain resolved.
[2018-01-23 09:33] LABS: Troponin I < 0.012 ng/mL (0.01-0.034)
[2018-01-23] MEDS: hydrOXYzine pamoate 25 MG CAPSULE 50 MG PO (09:35)
--- NOTE | 2018-01-23 09:48 | CM.DPC ---
DCP Discharge home Per MD, pt is medically stable to d/c home today with no identified barriers to discharge. Per RN, pt independent and no concerns at this time. Plan; Patient to d/c home today via POV. No SW needs at this time. MATEO Velazco
[2018-01-23] MEDS: DOCUSATE 100 MG CAPSULE 200 MG PO (12:16)
[2018-01-23] MEDS: SODIUM CHLORIDE 0.9% FLUSH 10 ML IV (12:17)
[2018-01-23] MEDS: ENOXAPARIN 40 MG/0.4 ML SYRINGE SUBCUT (12:18)
--- NOTE | 2018-01-23 12:30 | PC.NURSE ---
Tamara awoke from a long nap after Vistaril, stating she feels slightly better. Given plain Tylenol for rib discomfort secondary to coughing. Tessalon given for cough. Tamara is sitting up eating her lunch. She states she understands she will be discharged later today. VSS. Tele unremarkable NSR. Troponin normal.
== END 2018-01-23 13:45 | disposition home or self-care (01) ==
LOC: ED 14:16 → AC 16:13
PROVIDERS: Admitting Provider Family Medicine; Emergency Provider Nurse Practitioner Family; Family Provider Family Medicine; PCP Family Medicine; Visit Provider Family Medicine
DX: J96.01 Acute respiratory failure with hypoxia (principal); J44.1 Chronic obstructive pulmonary disease with (acute) exacerbation; F17.210 Nicotine dependence, cigarettes, uncomplicated
CPT/HCPCS: 36415; 36591; 36600; 71045; 73562; 80048; 81003; 81015; 82550; 82553; 82805; 83605; 83880; 84145; 84484; 85025; 87040; 87077; 87086; 87147; 87150; 87205; 93005; 93010; 94150; 94640; 94760; 94762; 96361; 96374; 97162; 99217; 99219; 99225; 99284; 99285; G0378; J1650; J2930; J7613

== ENCOUNTER 2018-08-26 11:55 | Day surgery (SDC) | payer OTHER, MEDICAID, SELFPAY ==
[2018-01-20 16:36] VITALS: BMI 22.1
[2018-08-26] VITALS (9 sets, daily range): BP systolic 102–124; BP diastolic 58–75; PULSE 78–91; RESP 10–20; TEMP 36.5–37.2; O2SAT 92–99; BMI 22.6
[2018-08-26] MEDS: SODIUM CHLORIDE 0.9% 1,000 ML 200 ML IV (12:47)
--- NOTE | 2018-08-26 14:04 | PM.HP.1 ---
History of Present Illness Date Patient Seen: 08/26/18 Time Patient Seen: 14:04 Chief complaint: [id number] COLONOSCOPY Narrative: Very pleasant 57-year-old lady who presents today for her 1st screening colonoscopy. She reports that there was some question about whether her mama had colon cancer but she thinks in the end they decided it was not from the colon. She says she has had several episodes of bright red blood per rectum but it always stop spontaneously. Her other most prominent health issue is chronic obstructive pulmonary disease and chronic bronchitis. She denies any unexplained weight loss. She denies any abdominal pain. She is very nervous and says she did not enjoy the prep at all. Patient History Medical History Blood in stool (Acute) DJD (degenerative joint disease) (Acute) Degenerative disc disease (Acute) Depression (Acute) History of chest pain (Acute) Sciatica (Acute) Shingles (Acute) Ankle pain (Chronic) Anxiety (Chronic) COPD (chronic obstructive pulmonary disease) (Chronic 2016) CTS (carpal tunnel syndrome) (Chronic) Chronic back pain (Chronic) Diastolic heart failure (Chronic) Foot pain (Chronic) Hemorrhoids (Chronic) IBS (irritable bowel syndrome) (Chronic) Irregular periods/menstrual cycles (Chronic 1976) Migraines (Chronic 1979) Painful menstrual periods (Chronic 1976) Peptic ulcer disease (Chronic ~1978) Shoulder pain (Chronic) Tinnitus (Chronic) Fractures (Resolved 1987) Genital warts (Resolved 1983) Stroke (Resolved) Vertigo (Resolved 1985) Surgical History History of cholecystectomy (Acute) History of salpingectomy (Acute) Anesthesia (Resolved) No history of previous surgery (Resolved 05/2017) Family History Brother Heart disease Father Heart disease Hypertension High cholesterol Stroke Diabetes mellitus Mother Cancer Stroke Diabetes mellitus Sister Hypertension High cholesterol Stroke Diabetes mellitus Social History marital status: household members: significant other, children and friend(s) pets and animals: Yes education level: other occupational status: other seatbelt use: always helmet use: Yes Smoking Status: Former smoker alcohol intake: current substance use type: marijuana during the past year weight has: remained stable well-balanced diet: daily or most days daily servings fruits/ve or more times/day caffeine: Yes eating out: rarely or never duration: 30-45 minutes/day Family & Social History Family History Brother Heart disease Father Heart disease Hypertension High cholesterol Stroke Diabetes mellitus Mother Cancer Stroke Diabetes mellitus Sister Hypertension High cholesterol Stroke Diabetes mellitus Social History: household members significant other,children,friend(s) Tobacco & Substance use: Tobacco type cigarettes Smoking Status Former smoker alcohol intake current alcohol intake frequency a few times a week Substance Use Type marijuana Meds Home Medications Medication Instructions Recorded Confirmed Type nebulizers #1 each 11/08/17 08/21/18 Rx hydroxyzine HCl 25 mg tablet 25 mg PO TID-QID PRN #30 tab 03/11/18 08/26/18 Rx guaifenesin ER 600 mg tablet, 1,200 mg PO BID #60 tab 03/26/18 08/21/18 Rx extended release 12 hr budesonide 0.5 mg/2 mL suspension 2 ml INHALATION BID #120 ml 04/25/18 08/26/18 Rx for nebulization fluoxetine 40 mg capsule 40 mg PO DAILY #30 cap 08/05/18 08/26/18 Rx ipratropium-albuterol 0.5 mg-3 3 ml INHALATION Q6-8H PRN #90 ml 08/19/18 08/26/18 Rx mg(2.5 mg base)/3 mL nebulization soln albuterol sulfate HFA 90 1 puff INHALATION Q4H PRN #18 gram 08/21/18 08/26/18 Rx mcg/actuation aerosol inhaler benzonatate 100 mg capsule 100 mg PO Q4HR PRN #60 cap 08/21/18 08/26/18 Rx prednisone 10 mg tablet See Rx Instructions PO DAILY #40 08/21/18 08/26/18 Rx tab Allergies Allergy/AdvReac Type Severity Reaction Status Date / Time Penicillins [PENICILLINS] Allergy Severe Swelling; Verified 08/26/18 13:15 difficulty breathing Review of Systems Review of Systems All systems reviewed & are unremarkable except as noted in HPI and below Exam Vital Signs (past 8 hours): - 08/26/18 12:52 Temperature 98.7 F Pulse Rate 81 Respiratory Rate 15 Blood Pressure 124/75 Pulse Oximetry 95 Oxygen Delivery Method Room Air Narrative Exam Narrative: Pleasant and nervous appearing lady in no distress. HEENT: Normocephalic and atraumatic, pupils equal round reactive to light accommodation with anicteric sclera Lungs: Good air movement bilaterally. She does have soft expiratory wheezes at the left apex. She denies any shortness of breath. Heart: Regular rate and rhythm abdomen: Soft, nontender, active bowel sounds extremities: Warm well perfused Assessment & Plan Assessment & Plan narrative: Very pleasant lady with a history of rectal bleeding who presents today for her 1st screening colonoscopy. We discussed the risks and benefits of the procedure the patient expressed a desire to completed today. Patient resisted discussion of risks and stated she did not want to know. She desired only to consent to the procedure as quickly as possible.
[2018-08-26] MEDS: fentaNYL 250 MCG/5 ML INJ IV (14:16)
[2018-08-26] MEDS: MIDAZOLAM 5 MG/5 ML VIAL IV (14:17)
--- NOTE | 2018-08-26 14:23 | PM.OP.1 ---
Operative Date/Time/Diagnoses Date of procedure: 08/26/18 Time of procedure: 14:23 Pre-op diagnosis: Screening Post-op diagnosis: same Procedure & Clinicians Procedure: colonoscopy to the cecum Same procedure as scheduled: Yes Indications: no prior colonoscopy Surgeon: Carley Cam Click Yes if Unassisted: Yes Anesthesia Type: Sedation ( Versed 8 mg; fentanyl 200 mcg) Operative Notes Findings: 1. Adequate prep 2. no polyps or mass lesions 3. No AV malformations 4. significant diverticulosis from 40 cm to the anorectal junction. Primarily large pockets with some false passages in the mid sigmoid region 5. grade 1 rectal prolapse. This is almost certainly the cause of the patient's episodes of bright red blood per rectum Closure Type: not applicable Specimen(s): none sent Estimated Blood Loss (mL): 0 Procedure in detail: After obtaining informed consent, the patient was brought to the GI suite and placed in the left lateral decubitus position on the examination table. After placement of appropriate monitors, the patient was given incremental doses of Versed and Fentanyl until an appropriate level of sedation was achieved. A time out was held per SCOAP protocol. A digital rectal examination was performed and did not reveal any masses or obstructing lesions. The colonoscope was gently passed into the patient's anus and the entire colon navigated to the level of the cecum with minimal difficulty. Once in the cecum, the scope was withdrawn being sure to go before and beyond all mucosal folds and prominences and get an excellent examination. The findings are noted above. At the level of the rectal vault, the scope was retroflexed and the internal anal canal was examined. The scope was straightened and air aspirated from the colon. The instrument was removed from the patient's body and the procedure was concluded. The patient was allowed to awaken from sedation without difficulty and taken to the post-anesthesia care unit in good condition. total sedation time was 21 min total withdrawal time was 9 min Complications: none Condition: stable Disposition: PACU Plan for aftercare: 1. Discharge to home 2. Plan for next colonoscopy in 10 years or as clinically indicated
--- NOTE | 2018-08-26 14:49 | SUR.PHASEI ---
Pt sloww to wake up.
--- NOTE | 2018-08-26 15:06 | SUR.PHASEI ---
More awake, belly still soft and no nausea, to opd.
== END 2018-08-26 15:55 | disposition home or self-care (01) ==
PROVIDERS: PCP Family Medicine; Visit Provider Surgery
PROC: 0DJD8ZZ Inspection of Lower Intestinal Tract, Via Natural or Artificial Opening Endoscopic (ICD-10-PCS; CPT 45378; principal; 2018-08-26 13:00)
DX: Z12.11 Encounter for screening for malignant neoplasm of colon (principal); K57.30 Diverticulosis of large intestine without perforation or abscess without bleeding; K64.0 First degree hemorrhoids; J44.9 Chronic obstructive pulmonary disease, unspecified; J42 Unspecified chronic bronchitis
CPT/HCPCS: 45378; 99152; J2250; J3010